=== PATIENT | female | born 1995 | race Caucasian/White ===

== ENCOUNTER 2018-09-12 14:22 | Outpatient (CLI) | payer OTHER, SELFPAY ==
[2018-09-13 11:16] LABS: HIV-1/2 Ag & Ab Screen Negative (NEGAT)
== END 2018-09-12 14:42 ==
PROVIDERS: PCP Nurse Practitioner Family; Visit Provider Obstetrics & Gynecology Gynecology
DX: Z11.4 Encounter for screening for human immunodeficiency virus [HIV] (principal)
CPT/HCPCS: 36415; 87389

== ENCOUNTER 2018-09-12 15:04 | Outpatient (REF) | payer OTHER, SELFPAY ==
[2018-09-15 14:40] LABS: Chlamydia Result Negative; GC Result Negative; Specimen Description CERVIX
== END 2018-09-12 15:24 ==
LOC: LBN 15:04
PROVIDERS: Obstetrics & Gynecology Gynecology; PCP Nurse Practitioner Family; Visit Provider Nurse Practitioner
DX: Z11.3 Encounter for screening for infections with a predominantly sexual mode of transmission (principal)
CPT/HCPCS: 87491; 87591

== ENCOUNTER 2018-11-10 10:58 | Outpatient (CLI) | payer MEDICAID, SELFPAY ==
[2018-11-10 11:40] LABS: Abs Immature Grans 0.03 k/cumm (0.0-0.09); Absolute Basophil Count 0.04 k/cumm (0.0-0.2); Absolute Lymphocyte Count 2.77 k/cumm (1.2-3.4); Absolute Monocyte Count 0.51 k/cumm (0.11-0.7); Basophils % 0.4; HCT 36.7 % (36.0-46.0); Immature Grans % 0.3; Lymphocytes % 26.5; Mean Corp. HGB Concentration 32.7 g/dL (32.0-36.0); Mean Corpuscular Hemoglobin 28.3 pg (27.0-33.0); Mean Corpuscular Volume 86.6 fL (80-95); Monocytes % 4.9; Neutrophils % 66.9; Platelet Count 302 x1000/uL (130-400); RBC 4.24 m/cumm (4.00-5.20); RBC Distribution Width 12.5 % (11.7-14.6); White Blood Cell Count 10.45 k/cumm (4.4-10.8)
[2018-11-10 11:41] LABS: Prothrombin Time 10.4 sec (9.3-11.0)
[2018-11-11 10:43] LABS: Syphilis Serology (RPR) Negative (Negative)
[2018-11-11 10:51] LABS: Rubella IgG Ab (UVM) Positive; Varicella IgG Antibody Positive
[2018-11-11 11:30] LABS: Hepatitis B Surface Ag Negative (NEGAT); Hepatitis C Ab w Rflx HCV PCR Negative (NEGAT)
[2018-11-11 12:25] LABS: HIV-1/2 Ag & Ab Screen Negative (NEGAT)
== END 2018-11-10 11:18 ==
PROVIDERS: PCP Nurse Practitioner; Visit Provider Advanced Practice Midwife
DX: Z34.91 Encounter for supervision of normal pregnancy, unspecified, first trimester (principal); Z11.4 Encounter for screening for human immunodeficiency virus [HIV]; Z11.59 Encounter for screening for other viral diseases; Z01.84 Encounter for antibody response examination; Z11.3 Encounter for screening for infections with a predominantly sexual mode of transmission
CPT/HCPCS: 36415; 80055; 80307; 86787; 86803; 86850; 86900; 86901; 87340; 87389; 87491; 87591; 84443; 85610; 86592; 86762; 87086

== ENCOUNTER 2018-11-20 13:09 | Outpatient (CLI) | payer MEDICAID, SELFPAY ==
[2018-11-20 13:42] LABS: Kit/Specimen SENT
[2018-11-25 17:02] LABS: Result Summary NEGATIVE; Specimen WB Whole Blood
== END 2018-11-20 13:29 ==
PROVIDERS: PCP Nurse Practitioner; Visit Provider Advanced Practice Midwife
DX: Z34.91 Encounter for supervision of normal pregnancy, unspecified, first trimester (principal); Z36.89 Encounter for other specified antenatal screening
CPT/HCPCS: 36415; 81220

== ENCOUNTER 2018-12-01 13:11 | Outpatient (CLI) | payer MEDICAID, SELFPAY ==
[2018-12-01 13:27] LABS: Kit/Specimen SENT
== END 2018-12-01 13:31 ==
PROVIDERS: PCP Nurse Practitioner; Visit Provider Obstetrics & Gynecology Gynecology
DX: Z34.01 Encounter for supervision of normal first pregnancy, first trimester (principal)
CPT/HCPCS: 36415

== ENCOUNTER 2018-12-12 02:04 | Outpatient (CLI) | payer MEDICAID, SELFPAY ==
[2018-12-12 15:01] LABS: Glucose,1 Hr (Glucola) 98 mg/dL (80-140)
== END 2018-12-12 02:24 ==
PROVIDERS: Advanced Practice Midwife; PCP Nurse Practitioner; Visit Provider Obstetrics & Gynecology Gynecology
DX: Z34.90 Encounter for supervision of normal pregnancy, unspecified, unspecified trimester (principal); Z68.37 Body mass index [BMI] 37.0-37.9, adult
CPT/HCPCS: 36415; 82950

== ENCOUNTER 2019-01-22 00:27 | Outpatient (CLI) | payer MEDICAID, SELFPAY ==
--- NOTE | 2019-01-22 14:56 | DI.US_ITS ---
SYMPTOM/DIAGNOSIS: SURVEY, US Z34.90 OBSTETRICAL ULTRASOUND: There is a single living intrauterine gestation. Estimated sonographic age is 20 weeks. The fetus is in the cephalic presentation. heart rate is 145 BPM. No abnormalities are identified. The amniotic fluid appears within normal limits visually. The placenta is anterior without evidence of previa. The placental cord insertion site is 1.1 cm from the edge of the placenta. IMPRESSION: Single living intrauterine gestation. Estimated sonographic age is 20 weeks. 2. Umbilical cord insertion site on to the placenta is 1.1 cm from the edge of the placenta. Predicted Gestational Age: Indication/History: SURVEY 19 Wks Range: 18 to 20 Prior US done on: Determined by: XX First US LMP XX History EDC by prior US: 06/18/19 For multiple gestations: Baby PLACENTA: Grade: 0-I Location: XX Anterior Posterior PRESENTATION: RT LT LOW LYING PREVIA Cephalic XX Trans (Head RT LT ) Varied Breech BIOMETRY: Anatomy Identified: BPD: 46 mm 20 wks 4 chamber Heart XX Heart Rate 145 BPM HC: 173 mm 19 +6 wks LVOT XX Post Fossa XX AC: 147 mm 20 wks RVOT XX Ventricles XX FL: 32 mm 19 +6 wks Stomach XX Nose XX Bladder XX Lips XX Cisterna Magna: 2.6 mm CI: 83 Kidneys XX Palate XX Cerebellum: 1.98 mm 3 vessel cord XX Spine XX EFW: 323 grms 93 % Cord Insertion XX NS= not seen Composite Age (US) 20 wks Many abnormalities cannot be diagnosed. A normal exam does not exclude congenital abnormality. EDC by US 06/11/19 Amniotic Fluid Index: Normal COMMENTS: RUQ: LUQ: RLQ: LLQ: Total: cm Biophysical Profile: Score 0/2 RADHA (>2cm) Respirations (>30 sec) Body flexion/extension Extremity flexion/extension TOTAL SCORE
== END 2019-01-22 00:47 ==
PROVIDERS: PCP Nurse Practitioner; Visit Provider Obstetrics & Gynecology
DX: Z34.92 Encounter for supervision of normal pregnancy, unspecified, second trimester (principal)
CPT/HCPCS: 76805

== ENCOUNTER 2019-03-25 02:15 | Outpatient (CLI) | payer MEDICAID, SELFPAY ==
[2019-03-25 10:29] LABS: Abs Immature Grans 0.06 k/cumm (0.0-0.09); Absolute Basophil Count 0.02 k/cumm (0.0-0.2); Absolute Eosinophil Count 0.09 k/cumm (0.0-0.7); Absolute Lymphocyte Count 1.49 k/cumm (1.2-3.4); Absolute Neutrophil Count 9.12 k/cumm (1.2-6.7); Basophils % 0.2; Eosinophils % 0.8; HCT 36.5 % (36.0-46.0); HGB 12.1 g/dL (12.0-15.5); Immature Grans % 0.5; Lymphocytes % 13.3; Mean Corp. HGB Concentration 33.2 g/dL (32.0-36.0); Mean Corpuscular Hemoglobin 30.3 pg (27.0-33.0); Mean Corpuscular Volume 91.5 fL (80-95); Mean Platelet Volume 10.8 fL (8.0-11.0); Monocytes % 3.8; Neutrophils % 81.4; Platelet Count 239 x1000/uL (130-400); RBC 3.99 m/cumm (4.00-5.20); RBC Distribution Width 12.9 % (11.7-14.6)
[2019-03-25 10:38] LABS: Glucose,1 Hr (Glucola) 137 mg/dL (80-140)
[2019-03-25 10:42] LABS: PTT Activated 23.6 sec (21.0-31.4); Prothrombin Time 10.5 sec (9.3-11.0)
[2019-03-25 10:49] LABS: Absolute Monocyte Count 0.43 k/cumm (0.11-0.7)
== END 2019-03-25 02:35 ==
PROVIDERS: PCP Nurse Practitioner; Visit Provider Nurse Practitioner Women's Health
DX: Z34.93 Encounter for supervision of normal pregnancy, unspecified, third trimester (principal); Z86.718 Personal history of other venous thrombosis and embolism
CPT/HCPCS: 36415; 82950; 85025; 85610; 85730

== ENCOUNTER 2019-04-10 02:11 | Outpatient (CLI) | payer MEDICAID, SELFPAY ==
--- NOTE | 2019-04-10 14:01 | DI.US_ITS ---
EXAM: US OB RADHA AND WEIGHT CLINICAL HISTORY: GROWTH US TECHNIQUE: Ultrasound performed using standard protocol. COMPARISON: US OB 2-3 trimester from 01/22/2019 US OB 2-3 trimester from 01/22/2019 FINDINGS: Fetus is in breech position. The placenta is anterior. The biometric measurements correspond to 31 weeks 1 day, which is consistent with dating from previous exams. The amniotic fluid index is normal at 16.6. The estimated weight is 1679 grams, corresponding to the 68th percentile. IMPRESSION: size is within normal limits for dates. Normal RADHA.
== END 2019-04-10 02:31 ==
PROVIDERS: PCP Nurse Practitioner; Visit Provider Obstetrics & Gynecology
DX: Z34.93 Encounter for supervision of normal pregnancy, unspecified, third trimester (principal)
CPT/HCPCS: 76816

== ENCOUNTER 2019-05-18 15:06 | Outpatient (REF) | payer MEDICAID, SELFPAY ==
[2019-05-18 16:12] LABS: *AMPHETAMINES SCREEN URINE Negative (Negative); *BARBITURATES SCREEN URINE Negative (Negative); *BENZODIAZEPINES SCREEN URINE Negative (Negative); Cannabinoids THC Negative (Negative); Cocaine Screen,Urine Negative (Negative); METHADONE URINE SCREEN Negative (Negative); OPIATES URINE SCREEN Negative (Negative)
[2019-05-18 16:21] LABS: Tricyclic Antidepressants Negative (Negative)
[2019-05-24 01:05] LABS: Buprenorphine Negative; Norbuprenorphine Negative
== END 2019-05-18 15:26 ==
LOC: LBN 15:06
PROVIDERS: PCP Nurse Practitioner; Visit Provider Obstetrics & Gynecology
DX: Z34.93 Encounter for supervision of normal pregnancy, unspecified, third trimester (principal); Z36.85 Encounter for antenatal screening for Streptococcus B
CPT/HCPCS: 80307; 87081

== ENCOUNTER 2019-05-29 11:12 | Outpatient (REF) | payer MEDICAID, SELFPAY | END 2019-05-29 11:32 | LOC: LBN 11:12 | PROVIDERS: PCP Nurse Practitioner; Visit Provider Obstetrics & Gynecology Gynecology | DX: Z34.93 Encounter for supervision of normal pregnancy, unspecified, third trimester (principal); Z36.85 Encounter for antenatal screening for Streptococcus B | CPT/HCPCS: 87081 ==

== ENCOUNTER 2019-06-07 09:12 | Observation (INO) | payer MEDICAID, SELFPAY ==
[2019-06-07 10:10] LABS: Abs Immature Grans 0.06 k/cumm (0.0-0.09); Absolute Basophil Count 0.02 k/cumm (0.0-0.2); Absolute Eosinophil Count 0.08 k/cumm (0.0-0.7); Absolute Lymphocyte Count 1.31 k/cumm (1.2-3.4); Absolute Monocyte Count 0.59 k/cumm (0.11-0.7); Absolute Neutrophil Count 5.81 k/cumm (1.2-6.7); Basophils % 0.3; HCT 38.4 % (36.0-46.0); Immature Grans % 0.8; Lymphocytes % 16.6; Mean Corp. HGB Concentration 33.9 g/dL (32.0-36.0); Mean Corpuscular Hemoglobin 29.7 pg (27.0-33.0); Mean Corpuscular Volume 87.9 fL (80-95); Mean Platelet Volume 11.1 fL (8.0-11.0); Monocytes % 7.5; Neutrophils % 73.8; Platelet Count 223 x1000/uL (130-400); RBC 4.37 m/cumm (4.00-5.20); RBC Distribution Width 12.8 % (11.7-14.6); White Blood Cell Count 7.87 k/cumm (4.4-10.8)
[2019-06-07 10:23] LABS: ALT 12 U/L (14-59); AST 14 U/L (15-37); Albumin 2.5 g/dL (3.4-5.0); Alkaline Phosphatase 110 U/L (46-116); Anion Gap 12.3 mmol/L (3-11); BUN 10 mg/dL (7-18); Bilirubin, Total 0.3 mg/dL (0.2-1.0); CO2 21.7 mmol/L (21.0-32.0); CREATININE 0.56 mg/dL (0.55-1.02); Calcium 9.1 mg/dL (8.5-10.1); Chloride 103 mmol/L (98-107); Glucose 90 mg/dL (74-106); Potassium 3.6 mmol/L (3.5-5.1); Sodium 137 mmol/L (136-145); Total Protein 6.8 g/dL (6.4-8.2)
[2019-06-07] MEDS: Ondansetron 4 MG/2 ML VIAL IVP (10:26)
[2019-06-07] MEDS: DEXTROSE 5%-LACTATED RINGERS 1,000 ML 150 ML IV ×2 (10:27→11:17)
[2019-06-07 11:33] LABS: Bilirubin Small (Negative); Blood Negative (Negative); Clarity Clear (Clear); Glucose 250 mg/dL (Negative); Ketones 40 mg/dL (Negative); Leukocyte Esterase Small (Negative); Nitrite Negative (Negative); Specific Gravity 1.025 (1.005-1.025); pH 5.5 (5-8)
[2019-06-07 11:44] LABS: Bacteria Negative HPF (Negative); C & S Indicated? No; Casts Negative LPF (Negative); Crystals Negative HPF (Negative); Epithelial Cells Moderate HPF (Negative); Mucus Trace (Negative); RBC Negative HPF (0-2); WBC 20-50 HPF (0-5)
== END 2019-06-07 14:30 | disposition home or self-care (01) ==
PROVIDERS: Admitting Provider Obstetrics & Gynecology; PCP Nurse Practitioner; Visit Provider Obstetrics & Gynecology
DX: O26.893 Other specified pregnancy related conditions, third trimester (principal); R10.9 Unspecified abdominal pain
CPT/HCPCS: 36415; 80053; 96360; 96361; 59025; 81003; 81015; 85025; G0378; J2405

== ENCOUNTER 2019-06-11 19:55 | Inpatient (IN) | payer MEDICAID, SELFPAY ==
[2019-06-11 20:49] LABS: HCT 37.5 % (36.0-46.0); HGB 12.7 g/dL (12.0-15.5); Mean Corp. HGB Concentration 33.9 g/dL (32.0-36.0); Mean Corpuscular Hemoglobin 29.6 pg (27.0-33.0); Mean Corpuscular Volume 87.4 fL (80-95); Mean Platelet Volume 11.8 fL (8.0-11.0); Platelet Count 209 x1000/uL (130-400); RBC 4.29 m/cumm (4.00-5.20); RBC Distribution Width 12.5 % (11.7-14.6)
--- NOTE | 2019-06-11 20:50 | HPE_ITS ---
Date of service: 06/11/19 Time of Service: 20:50 Assessment and Plan Assessment and plan (1) DVT of lower extremity (deep venous thrombosis): Status: Resolved (2) : Status: Acute (3) Encounter for induction of labor: Status: Acute Assessment and plan: Au well-placed and will remain in place overnight. Plan is to begin oxytocin initiation on the morning of 06/12/2019. History of Present Illness History of Present Illness Chief Complaint: Intrauterine at 39 weeks EGA, induction of labor. History of DVT s Narrative: Patient is a 23-year-old G1, P0 female admitted for a induction of labor at 39 weeks EGA. Patient is received prophylactic anticoagulation during this secondary to history of DVT a month after starting OCPs OCPs and after she sustained a ankle fracture and was immobile in a cast in 2016. She switched to unfractionated heparin at 36 weeks EGA and stopped heparin completely on 06/09/2019. She was counseled during this that it would be advised to have prophylactic anticoagulation. Patient stopped prophylactic baby aspirin at 36 weeks. course: First visit-[id number] 1214 visits first trimester blood pressure 110/68 third time is to blood pressure 129/80. Total weight gain 34 pounds. Size has been equal to dates. 30-week ultrasound showed estimated weight 68 percentile and normal cord insertion. Her partner Bello is supportive. No tobacco alcohol or drug use during this . Labs: GBS RV CX negative. Rh a positive antibody negative. Serology negative toxicology negative. Review of Systems Constitutional Constitutional: Reports system reviewed and no additional complaints, except as docu Gastrointestinal Gastrointestinal: Reports cramping (Recent evaluation for GI bug) and Reports loose stools (Loose stools have subsided.) Genitourinary Genitourinary: Reports system reviewed and no additional complaints, except as docu Musculoskeletal Musculoskeletal: Reports as per HPI (No lower extremity edema, unilateral swelling or redness) Psychiatric Psychiatric: Reports anxiety (Patient reports that she is feeling well has normal anxiety) and Reports other (Looking forward to having her baby) [facility] Medical History (Updated 06/11/19 @ 21:15 by Nicolle Akers MD) Ankle fracture (Resolved) 2011 BMI 37.0-37.9, adult (Acute) CAP (community acquired pneumonia) (Resolved) DVT of lower extremity (deep venous thrombosis) (Resolved) 2017. Began OCPs shortly before fractured ankle with prolonged immobility. 2018 thrombophilia eval negative. 2019. Rx with prophylactic anticoagulation during . Encounter for induction of labor (Acute) Excessive and frequent menstruation with irregular cycle (Inactive) Onset early adolescence. Rx with OCPs and most recently Depo-Provera last injection 07/2017. Menses now monthly. DANNA (generalized anxiety disorder) (Chronic) Rx with sertraline and ? Ativan. Not effective. Uses MJ to treat anxiety. Is open to counseling. Herpes zoster without complication (Acute) Intractable cyclical vomiting with nausea (Resolved) Morbid obesity (Resolved) Sciatica (Acute) Family History (Updated 09/01/18 @ 12:34 by Marlen Noel) Father Heart disease Mother Depression Maternal Grandfather Heart disease Maternal Grandmother Stroke Social History (Updated 09/12/18 @ 15:39 by Nicolle Akers MD) Smoking/Tobacco Use Status: Former Tobacco Use (remote hx, quit a couple years ago) Alcohol Intake: former (a couple beers per week, last one right before she found out about ) Details: Patient denies having an issue with alcohol Drug use: Never Substance use type: former substance user (Last MJ use right early September) Details: Marijuana use several times a week since 15yo for control of anxiety Household members: other Housing: apartment Number of Children: 0 Education Level: 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: [employer] House Pets and animals: Yes Pets and animals: cat(s) Sexually active: Yes Other: Past relationships have been with male partners What type of physical activity do you participate in: none Female Reproductive History Menstrual control method: none History History 1 Para 0 Hx # Term Pregnancies 0 Multiple births 0 Hx # Pregnancies 0 Ectopic pregnancies 0 AB induced 0 Hx Number of Living Children 0 AB spontaneous 0 Meds Home Medications and Allergies Home Medications Medication Instructions Recorded Confirmed Type prenat.vits,micheal,luy-vicv-vgggk 1 tab PO DAILY 10/15/18 06/05/19 History ondansetron 4 mg disintegrating 4 mg PO Q6H PRN #20 tab 06/07/19 Rx tablet Allergies Allergy/AdvReac Type Severity Reaction Status Date / Time No Known Allergies Allergy Verified 06/05/19 14:56 Exam Narrative Exam Narrative: Patient was admitted to the center NST was performed and was reactive. Vaginal exam: Closed soft 25% effaced -2 station vertex. With the patient's permission a Au bulb was inserted through the cervix into the uterus lower uterine segment and the bulb inflated with 30 cc of sterile normal saline. Patient tolerated the procedure well Const General: no acute distress Nutritional Appearance: obese Orientation: alert, awake and oriented x3 Neck Neck: normal visual inspection Thyroid: thyroid normal Resp Effort & Inspection: normal respiratory effort Auscultation: clear to auscultation bilaterally Cardio Rate: regular rate Rhythm: regular rhythm Manual OB Exam: dilated fingertip, effaced 25%, station -2 and other (Cervix soft, vertex presentation) Skin General skin exam: no rashes or lesions noted (Multiple tattoos) Neuro DTR's: Rt Patellar: 1+ (1 beat clonus) and Lt Patellar: 1+ (1 beat clonus) Extrem General: normal to inspection, full ROM, normal capillary refill, no pedal edema and no calf tenderness Psych Appearance: grossly normal Mental Status: mental status grossly normal Results Labs Result diagrams: 06/11/19 20:38
[2019-06-12] MEDS: Normal Saline Flush 10 ML SYR IVP (08:40)
[2019-06-12] MEDS: Lactated Ringers 1,000 ML 125 ML IV ×2 (08:40→16:06)
[2019-06-13] MEDS: Lactated Ringers 1,000 ML 125 ML IV
[2019-06-13] MEDS: FentaNYL/ROPIvacaine 2 mcg/ml and 0.1% 200 ML CADD Cassette EP (03:30)
[2019-06-13] MEDS: Calcium Carbonate *TUMS* 500 MG CHEW PO (07:20)
[2019-06-13] MEDS: Ibuprofen 600 MG TAB PO (15:00)
[2019-06-13] MEDS: Hamamelis Leaf/Glycerin 100 EACH BOX PR (19:46)
[2019-06-14] MEDS: Ibuprofen 600 MG TAB PO ×3 (01:00→19:40)
[2019-06-14] MEDS: Acetaminophen 325 MG TAB 650 MG PO ×2 (10:13→19:40)
[2019-06-14] MEDS: Docusate Sodium 100 MG CAP PO (12:48)
[2019-06-14] MEDS: Enoxaparin 40 MG/0.4 ML SYR SC (17:08)
[2019-06-15] MEDS: Acetaminophen 325 MG TAB 650 MG PO ×2 (04:20→12:07)
[2019-06-15] MEDS: Ibuprofen 600 MG TAB PO ×2 (04:20→12:08)
--- NOTE | 2019-06-15 13:21 | W.PM.DS.N ---
Date of service: 06/15/19 Time of Service: 13:21 DS: Diagnosis Discharge Diagnosis (1) DVT of lower extremity (deep venous thrombosis): Status: Resolved (2) : Status: Acute (3) Encounter for induction of labor: Status: Acute Discharge Plan Disposition Patient Disposition: HOME Condition: Good Discharge Details Reason For Visit: TERM INDUCTION OF LABOR Admit Date/Time: 06/11/19 19:55 Admit Provider: Nicolle Akers Attending Provider: Nicolle Akers Primary Care Provider: Danyell Choi [facility] Course Hospital Course: Ms. Castro was treated with prophylactic anticoagulation during her secondary to history of a DVT after a fractured ankle while on OCPs. She is stopped all heparin on 06/09/2019. Patient was admitted on 06/11/2019 underwent a Au bulb cervical ripening followed by oxytocin augmentation and a spontaneous vaginal delivery on 06/13/2019. She was discharged home on day 2 successfully breast-feeding and with minimal uterine cramping and minimal uterine bleeding. Plan at this time is to have her follow-up in approximately 2 weeks for assessment of mood and breast-feeding. She was given discharge instructions and will use ibuprofen for analgesia. Home Meds and New Rx's Prescriptions: No Action prenat.vits,micheal,hpw-vkap-lgksf tablet 1 tab PO DAILY RF: 0 ondansetron 4 mg tablet,disintegrating 4 mg PO Q6H PRN (Reason: nausea and vomiting) Qty: 20 RF: 0 enoxaparin [Lovenox] 40 mg/0.4 mL syringe 40 mg SC DAILY Qty: 4 RF: 6 Discharge Instructions Stand Alone Forms: BC Instructions, BC Post Vaginal Deliver Activity:: Activity as Tolerated Equipment/Supplies:: No Equipment Needed Diet:: As Tolerated Discharge Orders Discharge Orders: Discharge Order (Routine); Ordered 06/15/19 Ordered By: Nicolle Akers DS: Summary Status at Discharge Functional status at discharge: independent ambulation Overall status at discharge: patient is back to baseline Mental Status: mental status grossly normal Speech and Movement: speech and movement normal Mood: congruent mood Affect: normal affect Exam Const General: no acute distress Nutritional Appearance: obese Orientation: alert, awake and oriented x3 Neck Neck: normal visual inspection Resp Effort & Inspection: normal respiratory effort Cardio Rate: regular rate General: deferred Skin General skin exam: no rashes or lesions noted (Multiple tattoos) Extrem General: normal to inspection, full ROM, normal capillary refill and no pedal edema Psych Appearance: grossly normal Mental Status: mental status grossly normal Speech and Movement: speech and movement normal Mood: congruent mood Affect: normal affect DS: Data Vitals/I&O Vitals and I&O: Vital Signs Pain Level 3 06/15/19 12:08 Intake & Output 06/14/19 06/15/19 06/15/19 23:59 11:59 23:59 Intake Total 1000 / 1000 Balance 1000 / 1000 Intake: IV 1000 / 1000 [facility] Medical History (Updated 06/11/19 @ 21:15 by Nicolle Akers MD) Ankle fracture (Resolved) 2011 BMI 37.0-37.9, adult (Acute) CAP (community acquired pneumonia) (Resolved) DVT of lower extremity (deep venous thrombosis) (Resolved) 2016. Began OCPs shortly before fractured ankle with prolonged immobility. 2018 thrombophilia eval negative. 2019. Rx with prophylactic anticoagulation during . Encounter for induction of labor (Acute) Excessive and frequent menstruation with irregular cycle (Inactive) Onset early adolescence. Rx with OCPs and most recently Depo-Provera last injection 07/2017. Menses now monthly. DANNA (generalized anxiety disorder) (Chronic) Rx with sertraline and ? Ativan. Not effective. Uses MJ to treat anxiety. Is open to counseling. Herpes zoster without complication (Acute) Intractable cyclical vomiting with nausea (Resolved) Morbid obesity (Resolved) Sciatica (Acute) Family History (Updated 09/01/18 @ 12:34 by Marlen Noel) Father Heart disease Mother Depression Maternal Grandfather Heart disease Maternal Grandmother Stroke Social History (Updated 09/12/18 @ 15:39 by Nicolle Akers MD) Smoking/Tobacco Use Status: Former Tobacco Use (remote hx, quit a couple years ago) Alcohol Intake: former (a couple beers per week, last one right before she found out about ) Details: Patient denies having an issue with alcohol Drug use: Never Substance use type: former substance user (Last MJ use right early September) Details: Marijuana use several times a week since 15yo for control of anxiety Household members: other Housing: apartment Number of Children: 0 Education Level: 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 Date GA/Weeks # Outcome Route Wgt Sex Labor Lgth Anesthesia Location Prov Complic 06/13/19 39 Successful vaginal 8 lb 2 oz Male AOC Delivery Date: 06/13/19 On 06/15/19 @ 13:25 Nicolle Akers Induction of labor at term secondary to anticoagulation during this . . Intact perineum. Dante Dominguez.
[2019-06-15] MEDS: Enoxaparin 40 MG/0.4 ML SYR SC (16:03)
== END 2019-06-15 17:55 | disposition home or self-care (01) | DRG 807 ==
PROVIDERS: Admitting Provider Obstetrics & Gynecology Gynecology; PCP Nurse Practitioner; Visit Provider Obstetrics & Gynecology Gynecology
DX: O76 Abnormality in fetal heart rate and rhythm complicating labor and delivery (principal); Z37.0 Single live birth; O75.89 Other specified complications of labor and delivery; O99.344 Other mental disorders complicating childbirth; Z86.718 Personal history of other venous thrombosis and embolism; Z79.01 Long term (current) use of anticoagulants; Z3A.39 39 weeks gestation of pregnancy; F41.1 Generalized anxiety disorder
CPT/HCPCS: 85027; 86850; 86900; 86901; J1650; NC; 59200; J3490

== ENCOUNTER 2019-06-18 18:36 | Emergency (ER) | payer MEDICAID, SELFPAY ==
[2019-06-18 18:40] VITALS: BP 119/59; PULSE 110; RESP 14; TEMP 37.1; O2SAT 96
--- NOTE | 2019-06-18 18:56 | ED.GENADUL_ITS ---
Discharge Plan Disposition Patient Disposition: HOME Condition: Improving Discharge Details Chief Complaint: Urinary Clinical Impression: Urinary tract infection Primary Care Provider: Danyell Choi ED Provider: Hakeem Beauchamp Home Meds and New Rx's Prescriptions: New cephalexin 500 mg tablet 500 mg PO TID 7 Days Qty: 21 RF: 0 Continued prenat.vits,micheal,cbz-dnuw-zrvnn tablet 1 tab PO DAILY RF: 0 ondansetron 4 mg tablet,disintegrating 4 mg PO Q6H PRN (Reason: nausea and vomiting) Qty: 20 RF: 0 enoxaparin [Lovenox] 40 mg/0.4 mL syringe 40 mg SC DAILY Qty: 4 RF: 6 Discharge Instructions Instructions: Urinary Tract Infection in Women (ED) Additional Instructions: Home to rest this evening. Small, frequent sips of fluids to maintain hydration. Take antibiotics as prescribed, next dose tomorrow morning. As we discussed, watch [place] for the development of thrush. Return for any acute concerns. Your potassium was slightly low and was supplemented in the emergency department. You may liberalize potassium containing foods in the diet such as strawberries, bananas, tree nuts like almonds or cashews. Medical Decision Making 23-year-old female presents from home. She is 5 days status post uncomplicated vaginal delivery at approximately 39 weeks. She has had 4 to 5 days of urinary urgency, frequency, burning, mild crampy low back pain. She arrives to the ER afebrile with a discrete tachycardia. White blood cell count is 10, hematocrit 34, platelets 253, chemistries reassuring sodium 141, potassium 3.1, chloride 105, bicarb 21 BUN 8, creatinine 0.8. Patient received potassium supplementation in the ED. Her urinalysis reveals positive nitrites, positive leuk esterase, greater than 50 white blood cells per high-powered field and many bacteria. Consistent with acute urinary tract infection and possibly an early pyelonephritis. Patient was given ceftriaxone in the ER and I will place her on a course of Keflex. HPI General Mode of arrival: ambulatory . Date/Time Provider Initiated Documentation: 06/18/19 18:38 . Limitations to Documentation: no limitations . Information obtained by: patient . History of Present Illness 23 year old F presents to the emergency department with the chief complaint of UTI symptoms. 5 days status post uncomplicated vaginal delivery, described as moderate, Quality is described as dull, and is localized to the back. Patient reports no radiation. Patient started experiencing this day(s) and it has been constant. No relieving factors improve symptom(s), No exacerbating factors reported . Patient notes fever/chills, malaise and other (No vaginal discharge. Minimal vaginal bleeding.); denies shortness of breath and syncope. Patient did receive the following treatments prior to arrival, none Related Data Home Medications Medication Instructions Recorded Confirmed prenat.vits,micheal,jzj-qhoi-eglua 1 tab PO DAILY 10/15/18 06/12/19 ondansetron 4 mg disintegrating 4 mg PO Q6H PRN #20 tab 06/07/19 06/12/19 tablet enoxaparin 40 mg/0.4 mL 40 mg SC DAILY #4 ml 06/15/19 subcutaneous syringe cephalexin 500 mg PO TID 7 Days #21 tab 06/18/19 Previous Rx's Medication Instructions Recorded ondansetron 4 mg disintegrating 4 mg PO Q6H PRN #20 tab 06/07/19 tablet enoxaparin 40 mg/0.4 mL 40 mg SC DAILY #4 ml 06/15/19 subcutaneous syringe cephalexin 500 mg PO TID 7 Days #21 tab 06/18/19 Allergies Allergy/AdvReac Type Severity Reaction Status Date / Time No Known Allergies Allergy Verified 06/05/19 14:56 General Stated Complaint: Urinary CARIDAD: 3 Review of Systems Narrative: She has been breast-feeding. Minimal vaginal bleeding, no other vaginal discharge. States she did not have an episiotomy repair. 6 systems reviewed and otherwise negative [facility] Medical History Ankle fracture (Resolved) 2011 BMI 37.0-37.9, adult (Acute) CAP (community acquired pneumonia) (Resolved) DVT of lower extremity (deep venous thrombosis) (Resolved) 2016. Began OCPs shortly before fractured ankle with prolonged immobility. 2018 thrombophilia eval negative. 2019. Rx with prophylactic anticoagulation during . Encounter for induction of labor (Acute) Excessive and frequent menstruation with irregular cycle (Inactive) Onset early adolescence. Rx with OCPs and most recently Depo-Provera last injection 07/2017. Menses now monthly. DANNA (generalized anxiety disorder) (Chronic) Rx with sertraline and ? Ativan. Not effective. Uses MJ to treat anxiety. Is open to counseling. Herpes zoster without complication (Acute) Intractable cyclical vomiting with nausea (Resolved) Morbid obesity (Resolved) Sciatica (Acute) Family History Father Heart disease Mother Depression Maternal Grandfather Heart disease Maternal Grandmother Stroke Social History Smoking/Tobacco Use Status: Never Alcohol Intake: former Details: Patient denies having an issue with alcohol Drug use: Never Substance use type: former substance user Details: Marijuana use several times a week since 15yo for control of anxiety Household members: other Housing: apartment Number of Children: 0 Education Level: other 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 Date GA/Weeks # Outcome Route Wgt Sex Labor Lgth Anesthes ia Location Prov Complic 06/13/19 39 Successful vaginal 3.685 kg Male A OC Delivery Date: 06/13/19 On 06/15/19 @ 13:25 Nicolle Akers Induction of labor at term secondary to anticoagulation during this . . Intact perineum. Dante Dominguez. Exam Narrative Exam Narrative: GEN: awake, alert, oriented 3. Pleasant, well groomed, interactive. HEAD: Normocephalic, atraumatic ENT: Mucous membranes moist, oropharynx unremarkable, External ear exam unremarkable EYES: PERRL, EOMI NECK: Full ROM, no REMI, no menigismus CHEST/RESP: Nontender, clear to auscultation bilateral, no wheeze/rhonchi/rales CARDIOVASCULAR: RRR, no murmur, rub benny. 2+ Rad pulse bilateral ABDOMEN: Soft, nontender, no mass. +Bowel sounds EXT: Full ROM, no edema, no rash Neuro: Grossly normal neurologic exam, conversant, interactive. Psych: Speech fluent, thoughts congruent, affect normal Course Vital Signs Vital signs: Respiratory Effort 06/18/19 18:47
[2019-06-18 19:03] LABS: Bilirubin Negative (Negative); Blood Large (Negative); Clarity Sl Cloudy (Clear); Glucose Negative (Negative); Ketones Negative (Negative); Leukocyte Esterase Trace (Negative); Nitrite Positive (Negative)
[2019-06-18] MEDS: Acetaminophen 325 MG TAB 650 MG PO (19:07)
[2019-06-18] MEDS: Normal Saline Flush 10 ML SYR IVP (19:13)
[2019-06-18] MEDS: Normal Saline 1,000 ML 1000 ML IV (19:15)
[2019-06-18 19:17] LABS: Bacteria Many HPF (Negative); C & S Indicated? Yes; Casts Negative LPF (Negative); Crystals Negative HPF (Negative); Epithelial Cells Negative HPF (Negative); Mucus Negative (Negative); Other Cells Negative (Negative); RBC Negative HPF (0-2); WBC >50 HPF (0-5)
[2019-06-18 19:25] LABS: Abs Immature Grans 0.03 k/cumm (0.0-0.09); Absolute Basophil Count 0.01 k/cumm (0.0-0.2); Absolute Eosinophil Count 0.05 k/cumm (0.0-0.7); Absolute Lymphocyte Count 0.49 k/cumm (1.2-3.4); Absolute Neutrophil Count 9.43 k/cumm (1.2-6.7); Basophils % 0.1; Eosinophils % 0.5; HCT 34.2 % (36.0-46.0); HGB 11.2 g/dL (12.0-15.5); Immature Grans % 0.3; Lymphocytes % 4.6; Mean Corp. HGB Concentration 32.7 g/dL (32.0-36.0); Mean Corpuscular Hemoglobin 29.7 pg (27.0-33.0); Mean Corpuscular Volume 90.7 fL (80-95); Mean Platelet Volume 10.3 fL (8.0-11.0); Monocytes % 6.5; Platelet Count 253 x1000/uL (130-400); RBC 3.77 m/cumm (4.00-5.20); RBC Distribution Width 12.3 % (11.7-14.6); White Blood Cell Count 10.71 k/cumm (4.4-10.8)
[2019-06-18] MEDS: cefTRIAXone 1 GM/50 ML BAG IVPB (19:25)
[2019-06-18 19:34] LABS: Anion Gap 14.2 mmol/L (3-11); BUN 8 mg/dL (7-18); CO2 21.8 mmol/L (21.0-32.0); Calcium 7.9 mg/dL (8.5-10.1); Chloride 105 mmol/L (98-107); Glucose 109 mg/dL (74-106); Potassium 3.1 mmol/L (3.5-5.1); Sodium 141 mmol/L (136-145)
[2019-06-18] MEDS: Potassium Chloride Liquid 20 MEQ PKT PO (19:56)
[2019-06-18] MEDS: Cephalexin 500 MG CAP, 4 CAPS/BTL PO (19:57)
[2019-06-18 20:18] VITALS: BP 124/65; PULSE 99; RESP 14; TEMP 36.6; O2SAT 97
[2019-06-18 20:23] VITALS: BP 124/65; PULSE 99; TEMP 36.6; O2SAT 97
== END 2019-06-18 20:25 | disposition home or self-care (01) ==
PROVIDERS: Emergency Provider Emergency Medicine; PCP Nurse Practitioner
DX: N39.0 Urinary tract infection, site not specified (principal); B96.20 Unspecified Escherichia coli [E. coli] as the cause of diseases classified elsewhere; E87.6 Hypokalemia
CPT/HCPCS: 36415; 80048; 87077; 96361; 96365; 99284; 81003; 81015; 85025; 87086; 87186; J0696; J3490

== ENCOUNTER 2019-07-10 07:01 | Outpatient (CLI) | payer MEDICAID, SELFPAY ==
--- NOTE | 2019-07-10 10:17 | DI.US_ITS ---
EXAM: US LOWER EXTREMITY VENOUS LT CLINICAL HISTORY: LLE pain. History of DVT M79.662 PAIN LT LEG, Z86.718 HX DVT TECHNIQUE: Ultrasound performed using standard protocol. COMPARISON: No exams were available for comparison FINDINGS: The common femoral, superficial femoral and popliteal veins were freely compressible. No thrombus i s visualized. The saphenous vein appears free of thrombus. The posterior tibial veins are noncompre ssible and contain thrombus. The peroneal and anterior tibial veins were not visualized. No superfi cial venous varicosities are seen. No Park's cyst is identified. IMPRESSION: Deep venous thrombosis of the posterior tibial veins.
== END 2019-07-10 07:21 ==
PROVIDERS: PCP Nurse Practitioner; Visit Provider Obstetrics & Gynecology
DX: M79.662 Pain in left lower leg (principal); Z86.718 Personal history of other venous thrombosis and embolism; I82.442 Acute embolism and thrombosis of left tibial vein
CPT/HCPCS: 93971

== ENCOUNTER 2019-07-10 22:16 | Emergency (ER) | payer MEDICAID, SELFPAY ==
[2019-07-10 22:19] VITALS: BP 98/48; PULSE 76; RESP 22; TEMP 36.3; O2SAT 99
[2019-07-10 22:35] VITALS: RESP 22
[2019-07-10] MEDS: Normal Saline 1,000 ML 1000 ML IV (22:35)
[2019-07-10] MEDS: MORPHine 10 MG/ML VIAL (22:35)
[2019-07-10 22:50] LABS: HCT 42.1 % (36.0-46.0); HGB 13.6 g/dL (12.0-15.5); Mean Corp. HGB Concentration 32.3 g/dL (32.0-36.0); Mean Corpuscular Hemoglobin 28.6 pg (27.0-33.0); Mean Corpuscular Volume 88.4 fL (80-95); Mean Platelet Volume 10.5 fL (8.0-11.0); Platelet Count 330 x1000/uL (130-400); RBC 4.76 m/cumm (4.00-5.20); White Blood Cell Count 9.64 k/cumm (4.4-10.8)
[2019-07-10 23:03] LABS: INR 1.2 (0.9-1.1); PTT Activated 25.7 sec (21.0-31.4); Prothrombin Time 11.9 sec (9.3-11.0)
[2019-07-10 23:04] LABS: ALT 23 U/L (14-59); AST 13 U/L (15-37); Albumin 3.5 g/dL (3.4-5.0); Alkaline Phosphatase 91 U/L (46-116); BUN 12 mg/dL (7-18); Bilirubin, Total 0.3 mg/dL (0.2-1.0); CREATININE 0.86 mg/dL (0.55-1.02); Calcium 8.7 mg/dL (8.5-10.1); Chloride 106 mmol/L (98-107); Glucose 101 mg/dL (74-106); Potassium 3.6 mmol/L (3.5-5.1); Sodium 143 mmol/L (136-145); Total Protein 7.3 g/dL (6.4-8.2)
--- NOTE | 2019-07-10 23:04 | ED.GENADUL_ITS ---
Discharge Plan Disposition Patient Disposition: HOME Condition: Good Discharge Details Chief Complaint: Chest Pain Clinical Impression: Pulmonary embolism Primary Care Provider: Danyell Choi ED Provider: Zack Perales Home Meds and New Rx's Prescriptions: No Action prenat.vits,micheal,och-apmi-blzek tablet 1 tab PO DAILY RF: 0 Eliquis DVT-PE Treat 30D Start 5 mg (74 tabs) tablets,dose pack See Rx Instructions PO PER PKG DIR Qty: 74 RF: 0 ondansetron 4 mg tablet,disintegrating 4 mg PO Q6H PRN (Reason: nausea and vomiting) Qty: 20 RF: 0 Discharge Instructions Instructions: Pulmonary Embolism (GEN) Additional Instructions: You do have evidence of 3 small pulmonary embolisms. Your apixaban is appropriately dosed. Continue taking this as directed. Continue drinking plenty of fluids. Follow-up very closely with your primary care provider. If you notice any worsening of your symptoms, or any new symptoms such as vomiting, diarrhea, fever, chills, shortness of breath, chest pain, numbness, weakness, lightheadedness, or fainting , please return immediately to the emergency depa rtment for reevaluation. Please follow up with your primary care provider as soon as possible for reassessment and reevaluation. As always, it was a pleasure participating in your medical care today. Referrals: Danyell Choi, MEDICAL RECORD TECHNICIAN [Primary Care Provider] - Medical Decision Making This is a pleasant 23-year-old female who is recently , who was diagnosed with a left lower extremity DVT this morning, who presents for chest pain shortness of breath. She has taken her first dose of Eliquis today. EOMI, PERRL, Peripheral vision intact. No nystagmus. No external signs of preseptal cellulitis, no redness around the eye, no proptosis. No hyphema, no signs of trauma around the eye, no periorbital emphysema. Demonstrates slightly low blood pressure at 98/48, minimal tachycardia. No hypoxemia. Limited bedside portable cardiac ultrasound demonstrates no evidence of pericardial effusion, ventricles appear relatively unremarkable with no signs of significant right heart strain. EKG shows minimal nonspecific less than a millimeter ST depression in aVL, inverted T wave in V1. Q waves present in lead III. However review of prior EKG from 11/24/2018 demonstrates no acute changes. We will get a CTA, rehydrate, evaluate for signs of heart strain and reassess. 11:35 PM Patient's laboratory work-up is returned notably unremarkable, proBNP and troponin are both normal, white count and hemoglobin are normal. Electrolytes are unremarkable. Blood pressure after just 250 cc of fluid is notably improved to 114/71 systolic. Patient states that she feels much better. CT scan demonstrates evidence of small bilateral pulmonary emboli, on the segmental and subsegmental levels. No evidence of heart strain, or massive saddle emboli. Patient looks notably hemodynamically stable, she shows no signs of acute hemodynamic failure. No signs of significant heart strain on bedside limited cardiac echo. At this time I feel that the patient is stable for discharge especially in conjunction with relatively unchanged EKG, normal proBNP, normal troponin. She is on appropriate treatment already with her DVT with her apix aban. Recommend continuing the 10 mg twice daily for the next 6 days, followed by 5 mg twice daily after that. Discussed the importance of close follow-up, as well as concerning red flags of lightheadedness or syncope for which to immediately return. I have extensively reviewed the treatment plan and discharge instructions with the patient and their family. I have addressed all patient concerns at this time. The patient and family was made aware of what symptoms to monitor for that would warrant a return to the emergency department. Discussed the plan with the patient and family, they demonstrate verbal understanding and agreement with our assessment and plan at this time. EKG 22: 24 Sinus rhythm, rate 82, intervals normal, no evidence of STEMI. EKG shows minimal nonspecific less than a millimeter ST depression in aVL, inverted T wave in V1. Q waves present in lead III. However review of prior EKG from 11/24/2018 demonstrates no acute changes. FINDINGS: Pulmonary arteries: There is a filling defect in a right lower lobe segmental and subsegmental branch (series 6, image 316) in keeping with pulmonary embolus. Several tiny subsegmental defects are seen in both lungs, for example series 6 image 350. No central or lobar filling defect. Aorta: Unremarkable. No aortic aneurysm. No aortic dissection. Lungs: The lungs show no consolidation or evidence of infarction. Mild lower lobe atelectasis. Pleural space: Unremarkable. No pneumothorax. No pleural effusion. Heart: Normal heart size without pericardial effusion. No evidence of right heart strain. Lymph nodes: Unremarkable. No enlarged lymph nodes. Bones/joints: Unremarkable. No acute fracture. Soft tissues: Unremarkable. IMPRESSION: Small bilateral pulmonary emboli at the segmental and subsegmental levels. No evidence of right heart strain. Thank you for allowing us to participate in the care of your patient. Dictated and Authenticated by: Yvette Desai MD 07/10/2019 11:30 PM Eastern Time ([place] & [place]) HPI General Date/Time Provider Initiated Documentation: 07/10/19 22:43 . HPI Narrative: This is a 23-year-old female with a past medical history of a DVT when she was 16 years old after fracture, who is just recently , who was also just diagnosed with a left lower extremity DVT this morning. She was started on Eliquis, the first dose she took tonight. At noon this morning she noticed mild chest pain which worsened again at 330 and then at 6 PM. Currently her pain is notable, it is pleuritic and she describes it as significant chest pressure and pain. Worse with breathing, she feels associated shortness of breath, but denies any cough or hemoptysis. She denies any lightheadedness or syncope. She denies any tearing or ripping pain. She states that the pain in her calf is slightly improved. She has no other complaints at this time. She denies any other modifying factors. Related Data Home Medications Medication Instructions Recorded Confirmed prenat.vits,micheal,mlm-vlyw-dsjlt 1 tab PO DAILY 10/15/18 07/10/19 ondansetron 4 mg disintegrating 4 mg PO Q6H PRN #20 tab 06/07/19 07/10/19 tablet apixaban 5 mg (74 tabs) tablets in See Rx Instructions PO PER PKG DIR 07/10/19 07/10/19 a dose pack #74 dose pk Previous Rx's Medication Instructions Recorded ondansetron 4 mg disintegrating 4 mg PO Q6H PRN #20 tab 06/07/19 tablet apixaban 5 mg (74 tabs) tablets in See Rx Instructions PO PER PKG DIR 07/10/19 a dose pack #74 dose pk Allergies Allergy/AdvReac Type Severity Reaction Status Date / Time No Known Allergies Allergy Verified 07/10/19 22:26 General Stated Complaint: Chest Pain CARIDAD: 2 Review of Systems All systems reviewed & are unremarkable except as noted in HPI and below PFSH Social History Smoking/Tobacco Use Status: Never Alcohol Intake: former Details: Patient denies having an issue with alcohol Drug use: Never Substance use type: former substance user Details: Marijuana use several times a week since 15yo for control of anxiety Household members: other Housing: apartment Number of Children: 0 Education Level: other 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 Date GA/Weeks # Outcome Route Wgt Sex Labor Lgth Anesthes ia Location Prov Complic 06/13/19 39 Successful vaginal 3.685 kg Male A OC Delivery Date: 06/13/19 On 06/15/19 @ 13:25 Nicolle Akers Induction of labor at term secondary to anticoagulation during this . . Intact perineum. Dante Dominguez. Exam Narrative Exam Narrative: 1.Const: Well-nourished, Well-developed, appearing stated age 2.Eyes: PERRL, no conjunctival injection, and symmetrical lids. 3.ENT: Atraumatic external nose and ears. Moist MM. Neck: Symmetric, trachea midline, No thyromegaly. 4.CVS: +S1/S2, No murmurs or gallops. Peripheral pulses 2+ and equal in all extremities. Brisk capillary refill in all extremities. 5.RESP: Unlabored respiratory effort. Clear to auscultation bilaterally. No wheezes rales or rhonchi 6.GI: Soft, Nontender/Nondistended, No hepatosplenomegaly. No guarding or rebound. 7.MSK: Normocephalic/Atraumatic, Extremities w/o deformity or ttp No cyanosis or clubbing, Normal movement of all extremities. Minimal left lower extremity calf tenderness. 8.Skin: Warm, Dry. No rashes or lesions. 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 Sensation grossly intact, no focal neurologic deficits. 10.Psych: (AAO) x3. Appropriate mood and affect Course Vital Signs Vital signs: Vital Signs Temperature 36.3 C L 07/10/19 22:19 Pulse 76 07/10/19 22:19 Respiratory Rate 22 07/10/19 22:19 Blood Pressure 98/48 L 07/10/19 22:19 Pulse Oximetry 99 07/10/19 22:19 Temperature 36.3 C L 07/10/19 22:19 Temperature Source Skin 07/10/19 22:19 Pulse 76 07/10/19 22:19 Respiratory Rate 22 07/10/19 22:19 Respiratory Effort Pursed Lip 07/10/19 22:30 Blood Pressure 98/48 L 07/10/19 22:19 Blood Pressure Position Supine 07/10/19 22:19 Pulse Oximetry 99 07/10/19 22:19 Oxygen Delivery Method Room Air 07/10/19 22:19 Oxygen Flow Rate 0 07/10/19 22:19 Pain Level 8 07/10/19 22:35 Lab/Test Results Lab/Test Results: Laboratory Tests Range/Units 07/10/19 22:35 WBC (4.4-10.8) k/cumm 9.64 RBC (4.00-5.20) m/cumm 4.76 Hgb (12.0-15.5) g/dL 13.6 Hct (36.0-46.0) % 42.1 MCV (80-95) fL 88.4 MCH (27.0-33.0) pg 28.6 MCHC (32.0-36.0) g/dL 32.3 RDW (11.7-14.6) % 12.0 Plt Count (130-400) x1000/uL 330 MPV (8.0-11.0) fL 10.5
[2019-07-10 23:07] LABS: Troponin I < 0.05 ng/Ml (<0.06)
[2019-07-10 23:10] LABS: NT-proBNP 39 pg/mL (<300)
[2019-07-10] MEDS: Omnipaque 350 MG/ML 100 ML BTL IJ (23:13)
--- NOTE | 2019-07-10 23:16 | DI.CT_ITS ---
EXAM: CT CHEST PE CTA CLINICAL HISTORY: DVT, suspect PE, SOB, CP TECHNIQUE: COMPARISON: No exams were available for comparison FINDINGS: CT angiography of the chest was performed with intravenous infusion of 100 cc of Omnipaque 350. Imag es obtained through the upper abdomen show unremarkable appearance of visualized portions of liver, s pleen, pancreas, adrenals, and kidneys. The lungs are predominantly clear with minimal areas of dependent atelectasis. Tracheobronchial tree appears intact. No pneumothorax or pleural effusion. No evidence of aortic dissection or aneurysm. There are multiple segmental and subsegmental pulmonary emboli predominantly in the lower lobe vessel s bilaterally. No central pulmonary embolus identified. No evidence of right heart strain. No evid ence of pulmonary infarction. No evidence of mediastinal or hilar adenopathy. IMPRESSION: Multiple bilateral pulmonary emboli in segmental and subsegmental vessels as described above. No kavya dence of right heart strain.
[2019-07-10 23:20] VITALS: BP 114/71; PULSE 64; RESP 18; O2SAT 99
[2019-07-10 23:21] VITALS: BP 114/71; PULSE 66; RESP 18; O2SAT 98
--- NOTE | 2019-07-10 23:31 | DI.VRAD_ITS ---
Addendum created by Yvette Desai MD on 07/10/2019 11:31:56 PM EST THIS REPORT CONTAINS FINDINGS THAT MAY BE CRITICAL TO PATIENT CARE. The findings were verbally communicated via telephone conference with RAS WEBB at 11:31 PM EST on 07/10/2019. The findings were acknowledged and understood. Initial report created on 07/10/2019 11:30:54 PM EST PROCEDURE INFORMATION: Exam: CT Angiography Chest With Contrast Exam date and time: 07/10/2019 11:11 PM Age: 23 years old Clinical indication: Shortness of breath; Patient HX: Dvt, suspect pe, SOB, cp x8+/- hours. Recently gave (3 weeks ago) TECHNIQUE: Imaging protocol: Computed tomographic angiography of the chest with intravenous contrast. 3D rendering: MIP and/or 3D reconstructed images were created by the technologist. Radiation optimization: All CT scans at this facility use at least one of these dose optimization techniques: automated exposure control; mA and/or kV adjustment per patient size (includes targeted exams where dose is matched to clinical indication); or iterative reconstruction. Contrast material: [id number]; Contrast volume: 100 ml; Contrast route: IV RAC 18G; COMPARISON: No relevant prior studies available. FINDINGS: Pulmonary arteries: There is a filling defect in a right lower lobe segmental and subsegmental branch (series 6, image 316) in keeping with pulmonary embolus. Several tiny subsegmental defects are seen in both lungs, for example series 6 image 350. No central or lobar filling defect. Aorta: Unremarkable. No aortic aneurysm. No aortic dissection. Lungs: The lungs show no consolidation or evidence of infarction. Mild lower lobe atelectasis. Pleural space: Unremarkable. No pneumothorax. No pleural effusion. Heart: Normal heart size without pericardial effusion. No evidence of right heart strain. Lymph nodes: Unremarkable. No enlarged lymph nodes. Bones/joints: Unremarkable. No acute fracture. Soft tissues: Unremarkable. IMPRESSION: Small bilateral pulmonary emboli at the segmental and subsegmental levels. No evidence of right heart strain. Dictated and Authenticated by: Yvette Desai MD. Ordering:GOVIND Dixon MD
[2019-07-10 23:59] VITALS: BP 108/38; PULSE 73; RESP 25; TEMP 36.8
== END 2019-07-11 | disposition home or self-care (01) ==
PROVIDERS: Emergency Provider Student in an Organized Health Care Education/Training Program; PCP Nurse Practitioner
DX: O88.23 Thromboembolism in the puerperium (principal); O87.1 Deep phlebothrombosis in the puerperium; R07.9 Chest pain, unspecified; R06.00 Dyspnea, unspecified
CPT/HCPCS: 36415; 71275; 80053; 85027; 86850; 86900; 86901; 93005; 96361; 96374; 99285; 83880; 84484; 85610; 85730; 93010; J2270; J3490

== ENCOUNTER 2020-01-06 01:13 | Outpatient (CLI) | payer OTHER, SELFPAY ==
[2020-01-06 12:20] LABS: Glucose,1 Hr (Glucola) 84 mg/dL (80-140)
[2020-01-06 13:17] LABS: TSH (W/Ref FT4) 1.49 uIU/mL (0.36-3.74)
[2020-01-07 09:24] LABS: Hepatitis B Surface Ag Negative (Negative)
[2020-01-07 10:03] LABS: HIV-1/2 Ag & Ab Screen Negative (Negative)
[2020-01-07 10:21] LABS: Rubella IgG Ab (UVM) Positive (See Note); Varicella IgG Antibody Positive (See Note)
[2020-01-07 10:45] LABS: Hepatitis C Ab w Rflx HCV PCR Negative (Negative)
[2020-01-07 16:02] LABS: Syphilis Total Ab w/Reflex Nonreactive (Nonreactive)
[2020-01-13 13:29] LABS: Specimen WB Whole Blood
== END 2020-01-06 01:33 ==
PROVIDERS: PCP Nurse Practitioner; Visit Provider Advanced Practice Midwife
DX: Z34.91 Encounter for supervision of normal pregnancy, unspecified, first trimester (principal); Z36.89 Encounter for other specified antenatal screening; Z11.4 Encounter for screening for human immunodeficiency virus [HIV]; Z11.59 Encounter for screening for other viral diseases; Z01.84 Encounter for antibody response examination
CPT/HCPCS: 36415; 81329; 82950; 86787; 86803; 86850; 86900; 86901; 87340; 87389; 84443; 85025; 86762; 86780

== ENCOUNTER 2020-01-06 12:52 | Outpatient (REF) | payer OTHER, SELFPAY ==
[2020-01-06 18:39] LABS: *AMPHETAMINES SCREEN URINE Negative (Negative); *BARBITURATES SCREEN URINE Negative (Negative); *BENZODIAZEPINES SCREEN URINE Negative (Negative); Cannabinoids THC Negative (Negative); Cocaine Screen,Urine Negative (Negative); METHADONE URINE SCREEN Negative (Negative); OPIATES URINE SCREEN Negative (Negative)
[2020-01-06 18:40] LABS: Tricyclic Antidepressants Negative (Negative)
[2020-01-07 15:16] LABS: Chlamydia Result Negative (Negative); GC Result Negative (Negative)
[2020-01-15 12:52] LABS: Buprenorphine Negative; Norbuprenorphine Negative
== END 2020-01-06 13:12 ==
LOC: LBN 12:52
PROVIDERS: PCP Nurse Practitioner; Visit Provider Advanced Practice Midwife
DX: Z34.91 Encounter for supervision of normal pregnancy, unspecified, first trimester (principal); Z11.3 Encounter for screening for infections with a predominantly sexual mode of transmission
CPT/HCPCS: 80307; 87491; 87591; 87086

== ENCOUNTER 2020-02-23 00:57 | Outpatient (CLI) | payer OTHER, SELFPAY ==
--- NOTE | 2020-02-23 08:00 | DI.US_ITS ---
EXAM: US OB 2-3 TRIMESTER CLINICAL HISTORY: anatomy scan, O09.92. TECHNIQUE: Transabdominal obstetrical ultrasound performed. COMPARISON: US US OB 1ST TRIMESTER from 01/06/2020 FINDINGS: Transabdominal obstetrical ultrasound performed. FINDINGS: Number of fetuses: One. position: Varied positions during the examination. heart rate: 158 bpm. Placental location: Posterior and fundal no evidence of previa. BIOMETRIC DATA: EFW: 225 grms 28% Composite Age: 17 weeks 6 days EDC: 07/27/2020 Amniotic fluid index: Amount of fluid is within normal limits. ANATOMICAL SURVEY: Within normal limits. IMPRESSION: 1. Single live intrauterine gestation as above. 2. Normal anatomic survey. DATA REPOSITORY:
== END 2020-02-23 01:17 ==
PROVIDERS: PCP Nurse Practitioner; Visit Provider Obstetrics & Gynecology
DX: O09.92 Supervision of high risk pregnancy, unspecified, second trimester
CPT/HCPCS: 76805

== ENCOUNTER 2020-04-26 03:21 | Outpatient (CLI) | payer OTHER, SELFPAY ==
[2020-04-26 11:50] LABS: Abs Immature Grans 0.13 10^3/uL (0.0-0.06); Absolute Basophil Count 0.03 10^3/uL (0.0-0.2); Absolute Eosinophil Count 0.09 10^3/uL (0.0-0.7); Absolute Lymphocyte Count 1.88 10^3/uL (1.2-3.4); Absolute Neutrophil Count 10.54 10^3/uL (1.2-6.7); Basophils % 0.2; Eosinophils % 0.7; HCT 35.7 % (36.0-46.0); HGB 11.6 g/dL (11.2-15.7); Lymphocytes % 14.3; MCH 28.8 pg (27.0-33.0); MCHC 32.5 % (32.0-36.0); MCV 88.6 fL (80-95); MPV 10.4 fL (8.0-11.0); Monocytes % 3.8; Nucleated RBC 0 %; Platelet Count 243 10^3/uL (130-400); RBC 4.03 10^6/uL (3.93-5.22); RDW 12.5 % (11.7-14.6); RDW-SD 40.4 fL; WBC 13.17 10^3/uL (4.4-10.8)
[2020-04-26 12:01] LABS: Glucose,1 Hr (Glucola) 129 mg/dL (80-140)
== END 2020-04-26 03:41 ==
PROVIDERS: PCP Nurse Practitioner; Visit Provider Obstetrics & Gynecology
DX: O09.93 Supervision of high risk pregnancy, unspecified, third trimester (principal); Z3A.27 27 weeks gestation of pregnancy; Z86.718 Personal history of other venous thrombosis and embolism; Z86.711 Personal history of pulmonary embolism; Z79.01 Long term (current) use of anticoagulants; Z13.1 Encounter for screening for diabetes mellitus
CPT/HCPCS: 36415; 82950; 85025

== ENCOUNTER 2020-06-27 18:07 | Outpatient (REF) | payer OTHER, SELFPAY ==
[2020-06-27 18:06] LABS: *AMPHETAMINES SCREEN URINE Negative (Negative); *BARBITURATES SCREEN URINE Negative (Negative); *BENZODIAZEPINES SCREEN URINE Negative (Negative); Cannabinoids THC Negative (Negative); Cocaine Screen,Urine Negative (Negative); METHADONE URINE SCREEN Negative (Negative); OPIATES URINE SCREEN Negative (Negative)
[2020-06-27 18:09] LABS: Tricyclic Antidepressants Negative (Negative)
[2020-07-03 12:24] LABS: Buprenorphine Negative
== END 2020-06-27 18:27 ==
LOC: LBN 18:07
PROVIDERS: PCP Nurse Practitioner; Visit Provider Obstetrics & Gynecology
DX: O09.893 Supervision of other high risk pregnancies, third trimester (principal); R82.90 Unspecified abnormal findings in urine; Z3A.36 36 weeks gestation of pregnancy
CPT/HCPCS: 80307; 87081; 87086

== ENCOUNTER 2020-07-06 01:22 | Observation (INO) | payer OTHER, SELFPAY ==
--- NOTE | 2020-07-06 | DI.CT_ITS ---
EXAM: CT CHEST PE CTA CLINICAL HISTORY: 37w EGA with chest pain, hx of PE on anticoag. TECHNIQUE: Imaging Protocol: CT angiography of the chest was performed using pulmonary embolus [facility]. Multi planar reconstructions were performed. CONTRAST MATERIAL: Intravenous: Omnipaque 350 Contrast volume: 84 cc COMPARISON: CT CT CHEST PE CTA from 07/10/2019 FINDINGS: CHEST: PULMONARY ARTERIES: There are presently no intraluminal filling defects to suggest acute pulmonary em boli. LUNGS: There are no confluent infiltrates nor evidence of pulmonary infarction. And mild increased m arkings in both lungs probably a combination of suboptimal inspiration independent markings.. There are no pleural effusions. MEDIASTINUM: There is no hilar nor mediastinal adenopathy. Visualized thyroid unremarkable. CARDIAC: Heart size is upper normal. There is no pericardial effusion.Caliber of the thoracic aorta is within normal limits. There is no evidence of shift of the interventricular septum. PARTIALLY VISUALIZED UPPERMOST ABDOMEN: No obvious findings OSSEOUS: No significant osseous lesions.. IMPRESSION: 1. No evidence of acute pulmonary emboli. No evidence of pulmonary infarction.No pleural effusions. 2. Mild increased markings in the lung smith noted which is probably related to suboptimal inspirati on dependent markings. 3. No evidence of obvious right heart strain. RADIATION DOSE DELIVERED: LINK-TO-SR Total DLP DATA REPOSITORY: All CT scans at this facility are submitted to the National Radiology Data Registry (NRDR) Dose Index Registry (DIR) with the [employer] (ACR). RADIATION OPTIMIZATION: All CT scans at this facility use at least one of these dose optimization te chniques: automated exposure control; mA and/or kV adjustment per patient size (includes targeted exa ms where dose is matched to clinical indication); or iterative reconstruction.
[2020-07-06 01:24] VITALS: BP 139/60; PULSE 84
[2020-07-06 01:29] VITALS: BP 139/60; PULSE 101; RESP 20; TEMP 36.6; O2SAT 98
--- NOTE | 2020-07-06 01:35 | W.PM.HP.N ---
Date of service: 07/06/20 Time of Service: 01:35 Assessment and Plan Assessment and plan (1) High-risk in third trimester: Status: Acute Assessment and plan: Pt on chronic anticoagulation with abd/chest pain. Stable VS with 100% oxygenation on room air. No evidence of LE edema or tenderness. Currently w/o contractions by external toco, category 1 FHR tracing. Will continue to observe. Awaiting labs. (2) Abdominal pain affecting : Status: Acute (3) Chronic anticoagulation: Status: Acute Assessment and plan: Pt reports taking her last dose of Enoxaparin yesterday morning. Forgot last night's dose. I will hold all anticoagulation until pt's clearer picture of pt's status is determined. History of Present Illness History of Present Illness Chief Complaint: abdominal pain @ 37w4d EGA Narrative: Pt is a female currently 37w4d EGA who called [facility] to report the onset of midline, upper abdominal pain beginning ~ 0015 hours. She described the pain as sharp and radiating to her back. Had a BM and with Valsalva became nauseated, no emesis. Similar episode of discomfort a week ago that lasted an hour and resolved after a single emesis. Review of Systems Constitutional Constitutional: Reports as per HPI and Denies chills Cardiovascular Cardiovascular: Denies rapid heart rate, Denies claudication and Denies dyspnea on exertion Respiratory Respiratory: Denies chest congestion, Denies pain on inspiration and Denies dyspnea on exertion Gastrointestinal Gastrointestinal: Denies change in bowel habits, Reports nausea and Denies vomiting Genitourinary Genitourinary: Denies abnormal vaginal bleeding Musculoskeletal Musculoskeletal: Denies system reviewed and no additional complaints, except as documented Integumentary/Breasts Skin/Breast: Reports system reviewed and no additional complaints, except as documented Psychiatric Psychiatric: Reports system reviewed and no additional complaints, except as documented [facility] Medical History (Updated 07/06/20 @ 01:53 by Nicolle Akers MD) Abdominal pain affecting Ankle fracture 2011 BMI 37.0-37.9, adult CAP (community acquired pneumonia) Chronic anticoagulation DVT of lower extremity (deep venous thrombosis) 2017. Began OCPs shortly before fractured ankle with prolonged immobility. 2018 thrombophilia eval negative. 2019. Rx with prophylactic anticoagulation during . Encounter for induction of labor Excessive and frequent menstruation with irregular cycle Onset early adolescence. Rx with OCPs and most recently Depo-Provera last injection 07/2017. Menses now monthly. DANNA (generalized anxiety disorder) Rx with sertraline and ? Ativan. Not effective. Uses MJ to treat anxiety. Is open to counseling. Herpes zoster without complication Intractable cyclical vomiting with nausea Morbid obesity Sciatica Sciatica, right side Supervision of high risk in second trimester Family History (Updated 01/06/20 @ 13:57 by Marce Orellana CNM) Father Heart disease Mother Depression Maternal Grandfather Heart disease Maternal Grandmother Stroke 70-80s Sister Depression Social History Smoking/Tobacco Use Status: Never Smoking risk assessment performed?: Yes Alcohol Intake: former Details: Patient denies having an issue with alcohol Drug use: Never Substance use type: former substance user Details: Marijuana use several times a week since 15yo for control of anxiety Household members: other Housing: apartment Number of Children: 0 Education Level: other 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 Date GA/Weeks # Outcome Route Wgt Sex Labor Lgth Anesthesia Location Prov Complic 06/13/19 39 No Successful vaginal 8 lb 2 oz Male 42 hour induction regional A[facility] Delivery Date: 06/13/19 Induction of labor at term secondary to anticoagulation during this . . Intact perineum. Dante Dominguez. DVT and PE 2-3 weeks post post , Treated with Marce Demarco Home Medications and Allergies Home Medications Medication Instructions Recorded Confirmed Type prenat.vits,micheal,obx-ycne-zpfap 1 tab PO DAILY 10/15/18 06/27/20 History enoxaparin 80 mg/0.8 mL 80 mg SC DAILY #30 ml 01/18/20 06/27/20 Rx subcutaneous syringe nmtcpqphbt-ffbrrvzzjeuil-xyxpkpws 1 cap PO TID PRN #20 cap 04/12/20 06/27/20 Rx 50 mg-300 mg-40 mg capsule enoxaparin 40 mg/0.4 mL 40 mg SUBCUT Q12H #6 ml 06/27/20 06/27/20 Rx subcutaneous syringe Allergies Allergy/AdvReac Type Severity Reaction Status Date / Time No Known Allergies Allergy Verified 06/10/20 10:13 Exam Const General: no acute distress Nutritional Appearance: obese Orientation: alert, awake and oriented x3 Neck Neck: normal visual inspection Chest Chest: normal inspection of the chest Resp Effort & Inspection: normal respiratory effort and able to speak in complete sentences Auscultation: clear to auscultation bilaterally Cardio Rate: regular rate Rhythm: regular rhythm GI Inspection: normal to inspection Palpation: soft (gravid) and tender other (generalized tenderness R&L upper quadrant. tenderness mid thoracic vertebrae.) Percussion: normal to percussion Rectal Exam - female: deferred General: deferred Back/Spine/Pelvis Back: no CVA tenderness Cervical Spine: normal cervical lordosis Pelvis: no pain with anterior-posterior compression and no pain with lateral compression Skin General skin exam: no rashes or lesions noted Extrem General: normal to inspection, full ROM, no clubbing, cyanosis or edema and no calf tenderness Psych Appearance: grossly normal Mental Status: mental status grossly normal Mood: anxious mood (declines pain meds) Results Labs Result diagrams: 07/06/20 01:22 07/06/20 01:33 Last Vital Signs Pulse 84 07/06/20 01:24 BP 139/60 07/06/20 01:24 COVID-19 Screening Have you, or household traveled for leisure in last 14 days?: No
[2020-07-06 01:40] VITALS: BP 120/56; PULSE 78
[2020-07-06 01:54] VITALS: BP 124/70; PULSE 79
--- NOTE | 2020-07-06 02:00 | RT.EKG_ITS ---
APPROVED REPORT Exam: Resting ECG Patient Location: I HR:83 bpm ECG Measurements Heart Rate 83 AXIS DC 150 P 5 QRSd 84 QRS 7 QT 369 T 6 QTc 435 Conclusion Sinus rhythm...normal P axis, V-rate 60- 99 Normal Electrocardiogram
[2020-07-06 02:02] LABS: HCT 34.1 % (36.0-46.0); HGB 10.9 g/dL (11.2-15.7); MCH 27.2 pg (27.0-33.0); MPV 10.7 fL (8.0-11.0); Platelet Count 270 10^3/uL (130-400); RBC 4.01 10^6/uL (3.93-5.22); RDW 13.4 % (11.7-14.6); RDW-SD 41.4 fL; WBC 14.51 10^3/uL (4.4-10.8)
[2020-07-06 02:15] LABS: ALT 19 U/L (14-59); AST 14 U/L (15-37); Albumin 2.5 g/dL (3.4-5.0); Alkaline Phosphatase 97 U/L (46-116); Amylase 51 U/L (25-115); Anion Gap 10.9 mmol/L (3-11); BUN 8 mg/dL (7-18); Bilirubin, Total 0.4 mg/dL (0.2-1.0); CO2 24.1 mmol/L (21.0-32.0); CREATININE 0.57 mg/dL (0.55-1.02); Chloride 103 mmol/L (98-107); Glucose 94 mg/dL (74-106); Lipase 75 U/L (73-393); Sodium 138 mmol/L (136-145); Total Protein 6.4 g/dL (6.4-8.2)
[2020-07-06] MEDS: Simethicone 80 MG CHEW 160 MG PO (02:16)
--- NOTE | 2020-07-06 02:17 | W.PM.PROGNOT ---
Date of Service Date of service: 07/06/20 Time of Service: 02:18 Assessment and Plan Assessment and plan (1) Abdominal pain affecting : Status: Acute Assessment and plan: will order CT of chest to eval for PE. Subjective Subjective Patient reports: still having pain and nausea Interval history since last seen: VSS. Continues with chest and back pain. Exam Const General: no acute distress Objective Last Vital Signs Temp 97.9 F 07/06/20 01:29 Pulse 79 07/06/20 01:54 Resp 20 07/06/20 01:29 BP 124/70 07/06/20 01:54 Pulse Ox 98 07/06/20 01:29 Laboratory Results - last 24 hr 07/06/20 01:50 WBC 14.51 H RBC 4.01 Hgb 10.9 L Hct 34.1 L MCV 85.0 MCH 27.2 MCHC 32.0 RDW 13.4 Plt Count 270 MPV 10.7
[2020-07-06] MEDS: Ondansetron 4 MG/2 ML VIAL IVP (02:42)
[2020-07-06] MEDS: Lactated Ringers 1,000 ML 125 ML IV (02:44)
[2020-07-06] MEDS: Pantoprazole 40 MG VIAL IVP (02:44)
[2020-07-06] MEDS: Omnipaque 350 MG/ML 100 ML BTL IJ (03:53)
[2020-07-06] MEDS: Normal Saline - Diluent 50 ML VIAL IV (03:55)
[2020-07-06] MEDS: Normal Saline Flush 10 ML SYR (03:56)
--- NOTE | 2020-07-06 03:59 | DI.VRAD_ITS ---
PROCEDURE INFORMATION: Exam: CT Angiography Chest With Contrast Exam date and time: 07/06/2020 2:28 AM Age: 24 years old Clinical indication: Type not specified; Patient HX: 37 w ega, chest pain, HX of pe, on anticoag TECHNIQUE: Imaging protocol: Computed tomographic angiography of the chest with intravenous contrast. 3D rendering (Not supervised by radiologist): MIP and/or 3D reconstructed images were created by the technologist. Radiation optimization: All CT scans at this facility use at least one of these dose optimization techniques: automated exposure control; mA and/or kV adjustment per patient size (includes targeted exams where dose is matched to clinical indication); or iterative reconstruction. Contrast material: OMNIPAQUE 350; Contrast volume: 84 ml; Contrast route: INTRAVENOUS (IV); COMPARISON: CT CHEST PE CTA 07/10/2019 11:14 PM FINDINGS: Pulmonary arteries: There is no evidence for PE. Aorta: Unremarkable. No aortic aneurysm. No aortic dissection. Lungs: Basilar dependent pulmonary atelectasis is present. Peribronchial cuffing is present which is nonspecific, and which may reflect acute or chronic bronchial inflammation. Alternatively, this may reflect an element of reactive airways disease. Groundglass attenuation may reflect microatelectasis related to bronchial wall thickening.. Pleural space: Unremarkable. No pneumothorax. No pleural effusion. Heart: Unremarkable. No cardiomegaly. No pericardial effusion. Lymph nodes: Unremarkable. No enlarged lymph nodes. Bones/joints: Unremarkable. No acute fracture. Soft tissues: Unremarkable. IMPRESSION: 1. Nonspecific peribronchial cuffing. 2. Groundglass attenuation may reflect microatelectasis related to bronchial wall thickening.. Dictated and Authenticated by: Ren Busch MD. Ordering:OZZIE Valverde MD
--- NOTE | 2020-07-06 04:18 | W.PM.PROGNOT ---
Date of Service Date of service: 07/06/20 Time of Service: 04:18 Assessment and Plan Assessment and plan (1) Chronic anticoagulation: Status: Acute Assessment and plan: Pt was counseled to resume twice daily dosing of Enoxaparin (2) Abdominal pain affecting : Status: Acute Assessment and plan: resolved. Will order out pt RUQ u/s. Subjective Subjective Patient reports: feels better Interval history since last seen: Pt has returned from CT and pain has resolved. No PE on VRads report. All labs nl. I recommended discharge to home. Objective Last Vital Signs Temp 97.9 F 07/06/20 01:29 Pulse 79 07/06/20 01:54 Resp 20 07/06/20 01:29 BP 124/70 07/06/20 01:54 Pulse Ox 98 07/06/20 01:29 Laboratory Results - last 24 hr 07/06/20 07/06/20 07/06/20 01:50 01:50 01:50 WBC 14.51 H RBC 4.01 Hgb 10.9 L Hct 34.1 L MCV 85.0 MCH 27.2 MCHC 32.0 RDW 13.4 Plt Count 270 MPV 10.7 Sodium 138 Potassium 4.0 Chloride 103 Carbon Dioxide 24.1 Anion Gap 10.9 BUN 8 Creatinine 0.57 Estimated GFR/1.73 m2 >= 60.00 Glucose 94 Calcium 8.0 L Total Bilirubin 0.4 AST 14 L ALT 19 Alkaline Phosphatase 97 Total Protein 6.4 Albumin 2.5 L Amylase 51 Lipase 75 Patient ABO/Rh A Positive Antibody Screen Negative
== END 2020-07-06 05:00 | disposition home or self-care (01) ==
PROVIDERS: Admitting Provider Obstetrics & Gynecology Gynecology; PCP Nurse Practitioner; Visit Provider Obstetrics & Gynecology Gynecology
DX: O26.899 Other specified pregnancy related conditions, unspecified trimester (principal); R10.9 Unspecified abdominal pain; Z79.01 Long term (current) use of anticoagulants; Z86.718 Personal history of other venous thrombosis and embolism; O99.213 Obesity complicating pregnancy, third trimester; E66.01 Morbid (severe) obesity due to excess calories; Z3A.37 37 weeks gestation of pregnancy; O99.343 Other mental disorders complicating pregnancy, third trimester; F41.1 Generalized anxiety disorder; O99.353 Diseases of the nervous system complicating pregnancy, third trimester; M54.31 Sciatica, right side
CPT/HCPCS: 36415; 71275; 80053; 83690; 85027; 86850; 86900; 86901; 96360; 96361; 99221; NC; 59025; 82150; 93005; 93010; J2405; J3490

== ENCOUNTER 2020-07-07 01:28 | Outpatient (CLI) | payer OTHER, SELFPAY ==
--- NOTE | 2020-07-07 08:15 | DI.US_ITS ---
EXAM: US ABDOMEN INDICATION: RUQ ABD PAIN, R10.9,O26.899 COMPARISON: US US OB 2-3 TRIMESTER from 02/23/[address] CHEST PE CTA from 07/06/2020 TECHNIQUE: Ultrasound abdomen performed using standard protocol FINDINGS: Abdominal ultrasound was performed according to the usual protocol. The liver is normal in size and shape. No focal hepatic lesion seen. There are multiple gallstones noted, there is no evidence of biliary dilatation. No gallbladder wall thickening or pericholecystic fluid collection. Negative sonographic Thurman sign. Pancreas appears intact as visualized. Spleen is unremarkable in appearance with no focal lesion. Kidneys are normal in size and shape. No renal mass, hydronephrosis, or nephrolithiasis. Abdominal aorta and IVC are of normal diameter. IMPRESSION: Cholelithiasis, no other significant findings.
--- NOTE | 2020-07-07 08:15 | DI.US_ITS ---
EXAM: US OB RADHA WEIGHT CLINICAL HISTORY: weight and position,O09.93 TECHNIQUE: Ultrasound performed using standard protocol. COMPARISON: US US ABDOMEN from 07/07/2020 FINDINGS: Ob ultrasound was performed utilizing limited 3rd trimester protocol. biometry is consistent w ith a gestational age of 36 weeks 1 day and EDC August 03. Estimated weight is 2888 grams which is at the 24th percentile for predicted gestational age. Placenta is posterior with no placenta previa. Fetus is in cephalic position. cardiac rate is 149 BPM. There is visually a normal quantity of amniotic fluid and the RADHA is 14. IMPRESSION: DATA REPOSITORY:
== END 2020-07-07 01:48 ==
PROVIDERS: PCP Nurse Practitioner; Visit Provider Obstetrics & Gynecology
DX: O99.613 Diseases of the digestive system complicating pregnancy, third trimester (principal); Z3A.36 36 weeks gestation of pregnancy; R10.9 Unspecified abdominal pain
CPT/HCPCS: 76816; 76700

== ENCOUNTER 2020-07-18 18:41 | Inpatient (IN) | payer OTHER, SELFPAY ==
--- NOTE | 2020-07-14 14:47 | W.PM.OBHPL1 ---
Date of service: 07/14/20 Time of Service: 14:47 Assessment and Plan Assessment and plan (1) , high-risk: Status: Acute Assessment and plan: Patient is a 24 2 para 1 at 39 weeks and 2 days. She is a high risk for history of DVT and PE. Throughout her she has been fully anticoagulated on Lovenox. She has been seen by [facility] hematology and oncology service. She does understand to stop her Lovenox 12 hours prior to presentation. She does understand her risk of recurrent thromboembolic events. Risk benefits alternatives of labor induction including potential need for delivery, risk of hemorrhage, risk of retained placenta, risk of shoulder dystocia were all of explained to the patient full informed consent was obtained. She will present to the hospital for cervical ripening as her cervix is unfavorable today in the office. 1 cervix is ripe, Pitocin augmentation will be undertaken. Anesthesia is aware of her history and presence and will have baseline laboratory studies performed. She will also use compression stockings during the time that she is not ambulatory. (2) High BMI: Status: Acute (3) History of DVT (deep vein thrombosis): Status: Acute (4) DANNA (generalized anxiety disorder): Status: Chronic (5) Chronic anticoagulation: Status: Acute OB-HPI Labor/Delivery History of Present Illness Chief Complaint: Scheduled Induction of Labor Indication for Induction: Other (Patient anticoagulated, term induction for timing of discontinuation of anticoagulation). JEISON Calculator Estimated Delivery Date Method Current WG Current Estimate 07/23/20 LMP (Certain) 38w 5d Other Estimates 07/23/20 Ultrasound #1 38w 5d History of Present Expected Delivery Route/Plan KAVYA - MD VALIENTE -Zack Dominguez (second baby together) Specific Issues/Plan 1. History of DVT/PE while on anticoagulation. 01/11/20. [facility] [place] [facility] [place] Lovenox 80mg /day. Plan repeat [facility] [place] 4w prior to delivery. Plan change to Lovenox 40mg BID at 36w EGA. Stop Lovenox 24hrs prior to IOL. PP anticoagulation for 3mo after delivery 2. Known CF carrier screen negative 3. 07/05/20. RUQ pain. CT of chest: neg for PE. 07/07/20: Cholelithiasis.Will refer to General Surgery at [facility] for eval PP. Assessment: History Reviewed & Current Narrative: Patient presents at 39 weeks and 2 days for cervical ripening and subsequent labor induction. She has a significantly high risk during her due to her history of thromboembolism with both DVT and PE. She has been fully anticoagulated throughout her on Lovenox which has most recently been changed to split dosing morning and afternoon. She has discontinued her Lovenox 12 hours prior to presentation. She understands the risk, benefits, and alternatives of labor induction. She will have pneumatic compression stockings throughout her labor when she is not ambulatory. Informed Consent Informed Consent: Induction of Labor and Risk,Benefits,Alternatives Discussed Review of Systems All systems reviewed & are unremarkable except as noted in HPI and below Constitutional Constitutional: Reports as per HPI, Denies chills, Denies fatigue, Denies fever(s), Denies poor appetite and Denies weight loss Cardiovascular Cardiovascular: Reports system reviewed and no additional complaints, except as documented, Denies chest pain at rest, Denies chest pain with activity, Denies rapid heart rate, Denies irregular heart rhythm and Denies dyspnea Respiratory Respiratory: Reports system reviewed and no additional complaints, except as documented, Denies chest congestion, Denies cough, Denies pain with cough and Denies dyspnea Gastrointestinal Gastrointestinal: Reports system reviewed and no additional complaints, except as documented Genitourinary Genitourinary: Reports system reviewed and no additional complaints, except as documented Neurologic Neurologic: Reports system reviewed and no additional complaints, except as documented Psychiatric Psychiatric: Reports system reviewed and no additional complaints, except as documented Endocrine Endocrine: Denies fatigue Hematologic/Lymphatic Hematologic/Lymphatic: Reports system reviewed and no additional complaints, except as documented and Reports as per HPI [facility] Medical History Abdominal pain affecting Ankle fracture 2011 BMI 37.0-37.9, adult CAP (community acquired pneumonia) Chronic anticoagulation DVT of lower extremity (deep venous thrombosis) 2017. Began OCPs shortly before fractured ankle with prolonged immobility. 2018 thrombophilia eval negative. 2019. Rx with prophylactic anticoagulation during . Encounter for induction of labor Excessive and frequent menstruation with irregular cycle Onset early adolescence. Rx with OCPs and most recently Depo-Provera last injection 07/2017. Menses now monthly. DANNA (generalized anxiety disorder) Rx with sertraline and ? Ativan. Not effective. Uses MJ to treat anxiety. Is open to counseling. Herpes zoster without complication Intractable cyclical vomiting with nausea Morbid obesity Sciatica Sciatica, right side Supervision of high risk in second trimester Family History Father Heart disease Mother Depression Maternal Grandfather Heart disease Maternal Grandmother Stroke 70-80s Sister Depression Social History Smoking/Tobacco Use Status: Never Smoking risk assessment performed?: Yes Alcohol Intake: former Details: Patient denies having an issue with alcohol Drug use: Never Substance use type: former substance user Details: Marijuana use several times a week since 15yo for control of anxiety Household members: other Housing: apartment Number of Children: 0 Education Level: other 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 Date GA/Weeks # Outcome Route Wgt Sex Labor Lgth Anesthesia Location Prov Complic 06/13/19 39 No Successful vaginal 8 lb 2 oz Male 42 hour induction regional [facility] Delivery Date: 06/13/19 Induction of labor at term secondary to anticoagulation during this . . Intact perineum. Dante Dominguez. DVT and PE 2-3 weeks post post , Treated with Marce Demarco Home Medications and Allergies Home Medications Medication Instructions Recorded Confirmed Type prenat.vits,micheal,kgm-kqal-sfqzo 1 tab PO DAILY 10/15/18 07/14/20 History enoxaparin 80 mg/0.8 mL 80 mg SC DAILY #30 ml 01/18/20 07/14/20 Rx subcutaneous syringe [id number]-kuqayafofbaqi-iydeyjks 1 cap PO TID PRN #20 cap 04/12/20 07/14/20 Rx 50 mg-300 mg-40 mg capsule enoxaparin 40 mg/0.4 mL 40 mg SUBCUT Q12H #6 ml 06/27/20 07/14/20 Rx subcutaneous syringe Allergies Allergy/AdvReac Type Severity Reaction Status Date / Time No Known Allergies Allergy Verified 07/14/20 10:36 Exam Physical Exam Narrative: Examination performed at routine care today. Constitutional Constitutional: no acute distress and cooperative Detailed Labor and Delivery Exam Amin Score: Cervical Points Exam 0 1 2 3 Dilation Closed 1-2cm 3-4 cm 5-6cm Effacement 0-30% 40-50% 60-70% 80% Consistency Firm Medium Soft Station -3 -2 -1,0 +1,+2 Position Posterior Mid Anterior Cervix is 1 cm, 30% effaced, soft, posterior, -3 station with a Amin score of 3 Fetus A Heart Rate Baseline: 160 Presentation: Vertex Est. Weight: 8 lb HEENT Exam HEENT Exam: Normal Neck Exam Neck Exam: Normal Respiratory Exam Respiratory Exam: Normal Cardiovascular Exam Cardiovascular Exam: Normal Exam Exam: Normal Extremities Exam Extremities Exam: Normal Skin Exam Skin Exam: Normal Neurological Exam Neurological Exam: Normal Psychiatric Exam Psychiatric Exam: Normal Risk Assessment Risk for Shoulder Dystocia Historical/Initial OB: POSITIVE FOR: Pre- BMI>30; NEGATIVE FOR: Pelvic Abnormality, Previous Shoulder Dystocia or Previous Macrosomia 40 Weeks: NEGATIVE FOR: EFW> 4500 gms, Maternal Weight Gain >40lb or Post Dates Increased Risk?: Yes Date/Initial: KJ 07/14/20 Delivery Plan @ 40 wks: Labor induction at 39 weeks Risk for Pre-Eclampsia Date Initiated/Initials: 01/06/20 KM Yes, if one or more: NEGATIVE FOR: Hx Pre-E/Gest HTN, Chronic HTN, Multiple Gestation, Pre-gestational DM, Renal Disease, Systemic Lupus or APA Syndrome Yes, if 2 or more: POSITIVE FOR: BMI>30; NEGATIVE FOR: Nulliparity, Age>= 35 yrs, >10yr btwn pregnancies, ethinicty, Mother/Sister w/ Pre-E or Previous IUGR Risk for Post- Hemorrhage Initial: POSITIVE FOR: Anticoagulation; NEGATIVE FOR: Multiple Gestation, Previous PPH, Known Clotting Deficiency or Grand Multiparity At Risk?: Yes Interventions: IVs, uterotonic's as needed, active management Counseled re: Active Management: Yes Date/Initials: 07/14/20 CHRISTI Risks Reviewed Risks Reviewed Upon Admission: Yes
--- NOTE | 2020-07-18 18:56 | PGE_ITS ---
Date of service: 07/18/20 Time of Service: 18:56 Informed Consent Informed Consent: Induction of Labor and Risk,Benefits,Alternatives Discussed Pelvic Exam Comments: Vaginal exam deferred. Patient reports no significant contractions since last [facility] office visit. Contractions Monitor Mode: External Contraction Frequency(min): None Fetus A Monitor: External (US) Heart Rate Baseline: 150 Presentation: Cephalic (By Edwar's) Variability: Moderate (6-25 BPM) Categories: Category I FHR Rhythm: Regular Characteristics: Normal Accelerations: 15 X 15 Decelerations: None Amniotic Membrane Status: Intact Assessment and Plan Assessment and plan (1) High-risk in third trimester: Status: Acute Assessment and plan: SCDs in place overnight. (2) Elective induction of labor planned: Status: Acute Assessment and plan: Misoprostol cervical ripening overnight and oxytocin infusion in a.m. Objective Vital Signs Reviewed: Yes Objective Narrative Objective Narrative: Patient presents for induction of labor at term. The plan is to perform cervical ripening overnight with oral misoprostol. CBC PT, type and screen will be obtained. A saline lock will be Subjective Patient Reports: No new Complaints Interval history since last seen: Patient reports having taken her last Lovenox injection yesterday evening. No Lovenox administered this morning. No contractions. She reports good movement. Interventions Induction Indication: Other (Chronic anticoagulation, history DVT) , Type of I nduction: Misoprostol administration: Oral and Cervical Ripening , Induction Note: Plan oxytocin infusion on 07/19/2020 .
[2020-07-18] MEDS: Normal Saline Flush 10 ML SYR IVP (19:00)
[2020-07-18 19:18] LABS: HGB 10.7 g/dL (11.2-15.7); MCH 26.8 pg (27.0-33.0); MCHC 31.5 % (32.0-36.0); MPV 11.2 fL (8.0-11.0); Platelet Count 231 10^3/uL (130-400); RDW 13.7 % (11.7-14.6); RDW-SD 41.6 fL; WBC 11.79 10^3/uL (4.4-10.8)
[2020-07-18] MEDS: miSOPROStol 25 MCG TAB PO ×2 (19:21→23:28)
[2020-07-18 19:24] VITALS: BP 115/70; PULSE 95; RESP 18; TEMP 36.9; O2SAT 99
[2020-07-18 19:25] VITALS: BP 115/70; PULSE 95; RESP 18; TEMP 36.9; O2SAT 99
[2020-07-18 19:28] LABS: Prothrombin Time 10.5 sec (9.3-11.0)
[2020-07-18 23:05] VITALS: BP 109/62; PULSE 66; RESP 18; TEMP 36.6; O2SAT 98
[2020-07-18] MEDS: Zolpidem 5 MG TAB 10 MG PO (23:28)
[2020-07-19] VITALS (12 sets, daily range): BP systolic 91–113; BP diastolic 54–74; PULSE 52–95; RESP 16–18; TEMP 36.7–36.9; O2SAT 98
[2020-07-19] MEDS: miSOPROStol 25 MCG TAB PO ×2 (03:50→20:48)
--- NOTE | 2020-07-19 08:04 | W.PM.OBNL1 ---
Date of service: 07/19/20 Time of Service: 08:04 Informed Consent Informed Consent: Induction of Labor and Risk,Benefits,Alternatives Discussed Assessment and Plan Assessment and plan (1) Elective induction of labor planned: Status: Acute (2) Chronic anticoagulation: Status: Acute (3) High-risk in third trimester: Status: Acute (4) Deep vein thrombosis (DVT), : Status: Acute Objective Abnormal lab results 07/18/20 Range/Units 19:06 WBC 11.79 H (4.4-10.8) 10^3/uL Hgb 10.7 L (11.2-15.7) g/dL Hct 34.0 L (36.0-46.0) % MCH 26.8 L (27.0-33.0) pg MCHC 31.5 L (32.0-36.0) % MPV 11.2 H (8.0-11.0) fL Temp Pulse Resp BP Pulse Ox 98.2 F 81 16 112/74 98 07/19/20 05:59 07/19/20 05:59 07/19/20 05:59 07/19/20 05:59 07/19/20 05:59 Laboratory Results WBC 11.79 10^3/uL (4.4-10.8) H 07/18/20 19:06 RBC 4.00 10^6/uL (3.93-5.22) 07/18/20 19:06 Hgb 10.7 g/dL (11.2-15.7) L 07/18/20 19:06 Hct 34.0 % (36.0-46.0) L 07/18/20 19:06 MCV 85.0 fL (80-95) 07/18/20 19:06 MCH 26.8 pg (27.0-33.0) L 07/18/20 19:06 MCHC 31.5 % (32.0-36.0) L 07/18/20 19:06 RDW 13.7 % (11.7-14.6) 07/18/20 19:06 Plt Count 231 10^3/uL (130-400) 07/18/20 19:06 MPV 11.2 fL (8.0-11.0) H 07/18/20 19:06 PT 10.5 sec (9.3-11.0) 07/18/20 19:06 INR 1.0 (0.9-1.1) 07/18/20 19:06 Patient ABO/Rh A Positive 07/18/20 19:06 Antibody Screen Negative 07/18/20 19:06 Subjective Patient Reports: No new Complaints Interval history since last seen: Patient received 3 doses of Cytotec through the night. She is having irregular menstrual type cramps. Baby is active. Category 1 heart rate tracing. We discussed placement of a Au balloon for continued cervical ripening with Pitocin augmentation. Au balloon attempted to be inserted balloon dilated and fell out into the vagina. Cervix is 2 to 3 cm soft high mid position. Ultrasound confirmed vertex position patient has no other complaints at this time. Interventions Induction Indication: Other (Chronic anticoagulation) , Type of Induction: Pitocin , Results Hemoglobin/Hematocrit: Hgb 10.7 g/dL (11.2-15.7) L 07/18/20 19:06 Hct 34.0 % (36.0-46.0) L 07/18/20 19:06 Abnormal Lab Findings: Abnormal Labs 07/18/20 19:06 WBC 11.79 H Hgb 10.7 L Hct 34.0 L MCH 26.8 L MCHC 31.5 L MPV 11.2 H Procedure Procedures: Cervical Ripening
[2020-07-19] MEDS: Normal Saline Flush 10 ML SYR IVP (08:14)
[2020-07-19] MEDS: Lactated Ringers 1,000 ML 200 ML IV ×2 (08:15→15:16)
[2020-07-19] MEDS: Oxytocin/Normal Saline 30 UNIT/500 ML BAG 1 UNITS IV (09:00)
--- NOTE | 2020-07-19 19:52 | W.PM.OBNL1 ---
Date of service: 07/19/20 Time of Service: 19:53 Informed Consent Informed Consent: Induction of Labor and Risk,Benefits,Alternatives Discussed Assessment and Plan Assessment and plan (1) Elective induction of labor planned: Status: Acute Assessment and plan: Vaginal cytotec tonight. Pitocin with AROM in the AM as warranted Objective Temp Pulse Resp BP Pulse Ox 98.1 F 73 18 96/54 L 98 07/19/20 19:08 07/19/20 19:08 07/19/20 19:08 07/19/20 19:08 07/19/20 16:00 Laboratory Results WBC 11.79 10^3/uL (4.4-10.8) H 07/18/20 19:06 RBC 4.00 10^6/uL (3.93-5.22) 07/18/20 19:06 Hgb 10.7 g/dL (11.2-15.7) L 07/18/20 19:06 Hct 34.0 % (36.0-46.0) L 07/18/20 19:06 MCV 85.0 fL (80-95) 07/18/20 19:06 MCH 26.8 pg (27.0-33.0) L 07/18/20 19:06 MCHC 31.5 % (32.0-36.0) L 07/18/20 19:06 RDW 13.7 % (11.7-14.6) 07/18/20 19:06 Plt Count 231 10^3/uL (130-400) 07/18/20 19:06 MPV 11.2 fL (8.0-11.0) H 07/18/20 19:06 PT 10.5 sec (9.3-11.0) 07/18/20 19:06 INR 1.0 (0.9-1.1) 07/18/20 19:06 Patient ABO/Rh A Positive 07/18/20 19:06 Antibody Screen Negative 07/18/20 19:06 Subjective Patient Reports: No new Complaints Interval history since last seen: Has been on Pitocin all day with no significant cervical change. SVE 2, 50% -3. Too high for AROM. Will D/C pitocin. Allow dinner. Vaginal cytotec to follow for cervical ripening tonight Has PAS in place. Ambulating intermittently Results Hemoglobin/Hematocrit: Hgb 10.7 g/dL (11.2-15.7) L 07/18/20 19:06 Hct 34.0 % (36.0-46.0) L 07/18/20 19:06 Abnormal Lab Findings: Abnormal Labs 07/18/20 19:06 WBC 11.79 H Hgb 10.7 L Hct 34.0 L MCH 26.8 L MCHC 31.5 L MPV 11.2 H
--- NOTE | 2020-07-19 20:02 | NUR.NOTE ---
Nursing Note:At 1950 dr ford in to discuss plan with merlyn. The plan is to turn off the pitocin let her have dinner and then when pt is ready insert miso vaginally .
[2020-07-19 21:42] LABS: COVID-19 RT-PCR UVMMC Result Negative (Negative)
[2020-07-20] VITALS (49 sets, daily range): BP systolic 96–164; BP diastolic 51–81; PULSE 48–102; RESP 16–21; TEMP 36.4–36.7; O2SAT 97–100
--- NOTE | 2020-07-20 01:41 | NUR.NOTE ---
Nursing Note: repostioned side to side and then back t her back tocos adjusted
--- NOTE | 2020-07-20 02:07 | NUR.NOTE ---
dr ford in decision made to remove monitor and let flo sleep
--- NOTE | 2020-07-20 03:21 | PGE_ITS ---
Date of service: 07/20/20 Time of Service: : Informed Consent Informed Consent: Induction of Labor and Risk,Benefits,Alternatives Discussed Assessment and Plan Assessment and plan (1) Elective induction of labor planned: Status: Acute Assessment and plan: Cytotec this am. Pitocin with AROM when favorable (2) High-risk in third trimester: Status: Acute Objective Temp Pulse Resp BP Pulse Ox 98.3 F 53 L 18 104/53 L 98 07/19/20 20:35 07/20/20 03:19 07/20/20 01:57 07/20/20 03:19 07/19/20 16:00 Laboratory Results WBC 11.79 10^3/uL (4.4-10.8) H 07/18/20 19:06 RBC 4.00 10^6/uL (3.93-5.22) 07/18/20 19:06 Hgb 10.7 g/dL (11.2-15.7) L 07/18/20 19:06 Hct 34.0 % (36.0-46.0) L 07/18/20 19:06 MCV 85.0 fL (80-95) 07/18/20 19:06 MCH 26.8 pg (27.0-33.0) L 07/18/20 19:06 MCHC 31.5 % (32.0-36.0) L 07/18/20 19:06 RDW 13.7 % (11.7-14.6) 07/18/20 19:06 Plt Count 231 10^3/uL (130-400) 07/18/20 19:06 MPV 11.2 fL (8.0-11.0) H 07/18/20 19:06 PT 10.5 sec (9.3-11.0) 07/18/20 19:06 INR 1.0 (0.9-1.1) 07/18/20 19:06 SARS-CoV-2 (PCR) Negative (Negative) 07/18/20 18:30 Nasopharyn COVID-19 PCR Not Applicable 07/18/20 18:30 Ref Test Perform Site [facility] lab 07/18/20 18:30 Patient ABO/Rh A Positive 07/18/20 19:06 Antibody Screen Negative 07/18/20 19:06 Subjective Patient Reports: No new Complaints Interval history since last seen: Very few contractions. Baby is active. Category 1 strip. 25 mcg vaginal cytotec placed Results Hemoglobin/Hematocrit: Hgb 10.7 g/dL (11.2-15.7) L 07/18/20 19:06 Hct 34.0 % (36.0-46.0) L 07/18/20 19:06 Abnormal Lab Findings: Abnormal Labs 07/18/20 19:06 WBC 11.79 H Hgb 10.7 L Hct 34.0 L MCH 26.8 L MCHC 31.5 L MPV 11.2 H Procedure Procedures: Cervical Ripening Cervical Ripening: Misoprostol
[2020-07-20] MEDS: miSOPROStol 25 MCG TAB PO (03:25)
[2020-07-20] MEDS: Normal Saline Flush 10 ML SYR IVP (07:59)
[2020-07-20] MEDS: Lactated Ringers 1,000 ML 125 ML IV ×2 (08:00→15:06)
[2020-07-20] MEDS: Oxytocin/Normal Saline 30 UNIT/500 ML BAG 2 UNITS IV (08:40)
--- NOTE | 2020-07-20 09:02 | PGE_ITS ---
Date of service: 07/20/20 Time of Service: 09:03 Informed Consent Informed Consent: Induction of Labor and Risk,Benefits,Alternatives Discussed Pelvic Exam station: -4 (ballotable) Cervix Position: posterior Consistency: soft Vaginal Exam Presentation: Cephalic Comments: Pt's SVE was difficult to performe. VTX not well applied and posterior and difficult to access. Based on Dr. Gracia's previous exam I feel that there has not been any cervical change. Contractions Contraction Frequency(min): 0 Fetus A Monitor: External (US) Presentation: Cephalic Assessment Note: Will assess heart rate after a NSTs performed prior to initiation of oxytocin. Assessment and Plan Assessment and plan (1) Elective induction of labor planned: Status: Acute Assessment and plan: Hospital day 3. 2 nights of cervical ripening and 1 day of oxytocin infusion. The plan is to resume oxytocin infusion. (2) Chronic anticoagulation: Status: Acute Assessment and plan: Patient is has been without enoxaparin since evening of 07/17/2020. SCDs while in bed. Objective Temp Pulse Resp BP Pulse Ox 98.1 F 81 16 128/57 L 98 07/20/20 08:44 07/20/20 08:44 07/20/20 08:44 07/20/20 08:44 07/20/20 08:44 Laboratory Results WBC 11.79 10^3/uL (4.4-10.8) H 07/18/20 19:06 RBC 4.00 10^6/uL (3.93-5.22) 07/18/20 19:06 Hgb 10.7 g/dL (11.2-15.7) L 07/18/20 19:06 Hct 34.0 % (36.0-46.0) L 07/18/20 19:06 MCV 85.0 fL (80-95) 07/18/20 19:06 MCH 26.8 pg (27.0-33.0) L 07/18/20 19:06 MCHC 31.5 % (32.0-36.0) L 07/18/20 19:06 RDW 13.7 % (11.7-14.6) 07/18/20 19:06 Plt Count 231 10^3/uL (130-400) 07/18/20 19:06 MPV 11.2 fL (8.0-11.0) H 07/18/20 19:06 PT 10.5 sec (9.3-11.0) 07/18/20 19:06 INR 1.0 (0.9-1.1) 07/18/20 19:06 SARS-CoV-2 (PCR) Negative (Negative) 07/18/20 18:30 Nasopharyn COVID-19 PCR Not Applicable 07/18/20 18:30 Ref Test Perform Site [place] [facility] lab 07/18/20 18:30 Patient ABO/Rh A Positive 07/18/20 19:06 Antibody Screen Negative 07/18/20 19:06 Subjective Patient Reports: No new Complaints Interval history since last seen: Patient was admitted on the evening of 07/18/2000 for cervical ripening. She received oral misoprostol overnight and had oxytocin infusion that was titrated to a maximum of 20 milliunits/min on hospital day 2. There is no evidence of cervical change or descent of the vertex with the oxytocin infusion and cervical ripening was again performed overnight. Patient received 2 doses of This morning she is sitting up at the bedside on a exercise ball eating a regular diet. States no contractions at the present time. Interventions Induction Indication: Other (Chronic anticoagulation) , Type of Induction: Cervical Ripening , Results Hemoglobin/Hematocrit: Hgb 10.7 g/dL (11.2-15.7) L 07/18/20 19:06 Hct 34.0 % (36.0-46.0) L 07/18/20 19:06 Abnormal Lab Findings: Abnormal Labs 07/18/20 19:06 WBC 11.79 H Hgb 10.7 L Hct 34.0 L MCH 26.8 L MCHC 31.5 L MPV 11.2 H Procedure Procedures: Cervical Ripening Cervical Ripening: Misoprostol
--- NOTE | 2020-07-20 12:52 | W.PM.OBNL1 ---
Date of service: 07/20/20 Time of Service: 12:52 Informed Consent Informed Consent: Induction of Labor and Risk,Benefits,Alternatives Discussed Assessment and Plan Assessment and plan (1) Chronic anticoagulation: Status: Acute (2) Elective induction of labor planned: Status: Acute Objective Temp Pulse Resp BP Pulse Ox 97.9 F 74 18 116/65 97 07/20/20 11:49 07/20/20 11:49 07/20/20 11:49 07/20/20 11:49 07/20/20 11:49 Laboratory Results WBC 11.79 10^3/uL (4.4-10.8) H 07/18/20 19:06 RBC 4.00 10^6/uL (3.93-5.22) 07/18/20 19:06 Hgb 10.7 g/dL (11.2-15.7) L 07/18/20 19:06 Hct 34.0 % (36.0-46.0) L 07/18/20 19:06 MCV 85.0 fL (80-95) 07/18/20 19:06 MCH 26.8 pg (27.0-33.0) L 07/18/20 19:06 MCHC 31.5 % (32.0-36.0) L 07/18/20 19:06 RDW 13.7 % (11.7-14.6) 07/18/20 19:06 Plt Count 231 10^3/uL (130-400) 07/18/20 19:06 MPV 11.2 fL (8.0-11.0) H 07/18/20 19:06 PT 10.5 sec (9.3-11.0) 07/18/20 19:06 INR 1.0 (0.9-1.1) 07/18/20 19:06 SARS-CoV-2 (PCR) Negative (Negative) 07/18/20 18:30 Nasopharyn COVID-19 PCR Not Applicable 07/18/20 18:30 Ref Test Perform Site [place] [facility] lab 07/18/20 18:30 Patient ABO/Rh A Positive 07/18/20 19:06 Antibody Screen Negative 07/18/20 19:06 Vital Signs Reviewed: Yes Objective Narrative Objective Narrative: Sitting in bed semi-Fowlers position looking at her cell phone. Not breathing through contractions Subjective Patient Reports: New Complaints Interval history since last seen: Patient is currently receiving 10 mu/min of oxytocin per protocol and feeling contractions little more strongly. The nurse weigher bulker visited the patient and discussed possibility of an epidural. Patient declines epidural for labor analgesia. Interventions Induction Indication: Other (Chronic anticoagulation) , Type of Induction: Cervical Ripening (Misoprostol cervical ripening followed by oxytocin infusion) , Results Hemoglobin/Hematocrit: Hgb 10.7 g/dL (11.2-15.7) L 07/18/20 19:06 Hct 34.0 % (36.0-46.0) L 07/18/20 19:06 Abnormal Lab Findings: Abnormal Labs 07/18/20 19:06 WBC 11.79 H Hgb 10.7 L Hct 34.0 L MCH 26.8 L MCHC 31.5 L MPV 11.2 H Procedure Procedures: Other (Continue current management and increasing oxygen concentration.)
[2020-07-20] MEDS: Calcium Carbonate *TUMS* 500 MG CHEW PO ×2 (14:04→17:12)
[2020-07-20] MEDS: Lactated Ringers 500 ML IV (16:10)
--- NOTE | 2020-07-20 17:22 | PGE_ITS ---
Date of service: 07/20/20 Time of Service: 17:22 Informed Consent Informed Consent: Induction of Labor and Risk,Benefits,Alternatives Discussed Assessment and Plan Assessment and plan (1) Elective induction of labor planned: Status: Acute (2) Chronic anticoagulation: Status: Acute Objective Temp Pulse Resp BP Pulse Ox 98.1 F 60 18 127/67 98 07/20/20 15:17 07/20/20 17:18 07/20/20 15:17 07/20/20 17:09 07/20/20 17:18 Laboratory Results WBC 11.79 10^3/uL (4.4-10.8) H 07/18/20 19:06 RBC 4.00 10^6/uL (3.93-5.22) 07/18/20 19:06 Hgb 10.7 g/dL (11.2-15.7) L 07/18/20 19:06 Hct 34.0 % (36.0-46.0) L 07/18/20 19:06 MCV 85.0 fL (80-95) 07/18/20 19:06 MCH 26.8 pg (27.0-33.0) L 07/18/20 19:06 MCHC 31.5 % (32.0-36.0) L 07/18/20 19:06 RDW 13.7 % (11.7-14.6) 07/18/20 19:06 Plt Count 231 10^3/uL (130-400) 07/18/20 19:06 MPV 11.2 fL (8.0-11.0) H 07/18/20 19:06 PT 10.5 sec (9.3-11.0) 07/18/20 19:06 INR 1.0 (0.9-1.1) 07/18/20 19:06 SARS-CoV-2 (PCR) Negative (Negative) 07/18/20 18:30 Nasopharyn COVID-19 PCR Not Applicable 07/18/20 18:30 [facility] 07/18/20 18:30 Patient ABO/Rh A Positive 07/18/20 19:06 Antibody Screen Negative 07/18/20 19:06 Vital Signs Reviewed: Yes Subjective Interval history since last seen: AROM performed at 1545. Clear fluid. Intensity of contractions increased shortly after AROM. Katherine Platt DISTILLERY SUPERVISOR spoke to the pt regarding analgesia options during labor and decision made to place labor epidural. Interventions Pain Management Interventions: Epidural ./ Induction Indication: Other (Chronic anticoagulation) , Type of Induction: Pitocin , Results Hemoglobin/Hematocrit: Hgb 10.7 g/dL (11.2-15.7) L 07/18/20 19:06 Hct 34.0 % (36.0-46.0) L 07/18/20 19:06 Abnormal Lab Findings: Abnormal Labs 07/18/20 19:06 WBC 11.79 H Hgb 10.7 L Hct 34.0 L MCH 26.8 L MCHC 31.5 L MPV 11.2 H
[2020-07-20] MEDS: FentaNYL/ROPIvacaine 2 mcg/ml and 0.1% 200 ML CADD Cassette EP (18:03)
--- NOTE | 2020-07-20 19:53 | W.PM.OBNL1 ---
Date of service: 07/20/20 Time of Service: 19:53 Informed Consent Informed Consent: Induction of Labor and Risk,Benefits,Alternatives Discussed Assessment and Plan Assessment and plan (1) Variable heart rate decelerations, antepartum: Status: Acute Assessment and plan: pt's cervix is changing and vtx descending. will continue with position changes and anticipate . Objective Temp Pulse Resp BP Pulse Ox 97.9 F 48 L 18 101/57 L 100 07/20/20 18:17 07/20/20 19:25 07/20/20 18:17 07/20/20 19:25 07/20/20 18:18 Laboratory Results WBC 11.79 10^3/uL (4.4-10.8) H 07/18/20 19:06 RBC 4.00 10^6/uL (3.93-5.22) 07/18/20 19:06 Hgb 10.7 g/dL (11.2-15.7) L 07/18/20 19:06 Hct 34.0 % (36.0-46.0) L 07/18/20 19:06 MCV 85.0 fL (80-95) 07/18/20 19:06 MCH 26.8 pg (27.0-33.0) L 07/18/20 19:06 MCHC 31.5 % (32.0-36.0) L 07/18/20 19:06 RDW 13.7 % (11.7-14.6) 07/18/20 19:06 Plt Count 231 10^3/uL (130-400) 07/18/20 19:06 MPV 11.2 fL (8.0-11.0) H 07/18/20 19:06 PT 10.5 sec (9.3-11.0) 07/18/20 19:06 INR 1.0 (0.9-1.1) 07/18/20 19:06 SARS-CoV-2 (PCR) Negative (Negative) 07/18/20 18:30 Nasopharyn COVID-19 PCR Not Applicable 07/18/20 18:30 Ref Test Perform Site [place] [facility] 07/18/20 18:30 Patient ABO/Rh A Positive 07/18/20 19:06 Antibody Screen Negative 07/18/20 19:06 Vital Signs Reviewed: Yes Subjective Interval history since last seen: Pt not feeling contractions. Having shakes. Afebrile Interventions Augmentation (postion changed, oxytocin infusion decreased [id number]/min to 10mu/min) , Pitocin rate (mU/min): 10 Results Hemoglobin/Hematocrit: Hgb 10.7 g/dL (11.2-15.7) L 07/18/20 19:06 Hct 34.0 % (36.0-46.0) L 07/18/20 19:06 Abnormal Lab Findings: Abnormal Labs 07/18/20 19:06 WBC 11.79 H Hgb 10.7 L Hct 34.0 L MCH 26.8 L MCHC 31.5 L MPV 11.2 H Procedure Procedures: Scalp Electrode Placement (loss of FHR with external toco.) , indication for electrode: fhr changes
[2020-07-20] MEDS: Oxytocin/Normal Saline 30 UNIT/500 ML BAG 95 UNITS IV (20:25)
[2020-07-21] MEDS: Ibuprofen 600 MG TAB PO ×3 (01:14→13:29)
[2020-07-21 01:15] VITALS: BP 115/74; PULSE 88; RESP 18; TEMP 37; O2SAT 98
[2020-07-21 05:30] VITALS: BP 111/71; PULSE 77; RESP 18; TEMP 36.5; O2SAT 97
[2020-07-21] MEDS: Acetaminophen 325 MG TAB 650 MG PO ×2 (05:48→13:29)
[2020-07-21 07:20] VITALS: BP 111/71; PULSE 76; RESP 20; TEMP 36.7; O2SAT 98
--- NOTE | 2020-07-21 09:13 | W.PM.OBDISCH ---
Date of service: 07/22/20 Time of Service: 08:31 DS: Diagnosis Discharge Diagnosis (1) History of DVT (deep vein thrombosis): Status: Acute (2) Chronic anticoagulation: Status: Acute (3) Elective induction of labor planned: Status: Acute (4) Vaginal delivery: Status: Acute (5) Recurrent biliary colic: Status: Acute (6) Abdominal pain affecting : Status: Acute Discharge Plan Disposition Patient Disposition: HOME Condition: Good Discharge Details Reason For Visit: AT 39 2/7. HX PE/DVT Admit Date/Time: 07/18/20 18:41 Admit Provider: Eloisa Gracia Attending Provider: Eloisa Gracia Primary Care Provider: Danyell Choi Hospital Course Hospital Course: Pt was admitted evening on 07/18/20 for cervical ripening with PO Misoprostol. On HD 2 she received Oxytocin infusion without appreciable cervical change so received vaginal Misoprostol on the evening HD2. On HD 3 the Oxytocin infusion was restarted and at 20;14 the evening of 07/20/20 she underwent a of a viable female infant named Celeste over an intact perineum. Wt 6lb7oz. Pt was restarted on daily Enoxaparin dose 12hrs after her epidural catheter was removed. She will be discharged to home taking Enoxaparin 80mg day for 4 days and then switch to Warfarin dosing only on day 5. There will be no overlap of Enoxaparin and Warfarin. She will need appointments in lab for Jul 27, 2020 for assessment of INR and PT. Warfarin dosing will be adjusted with goal of INR between 2-3. Pt need f/u at [facility] on 07/27/20 and lab draw prior to the [facility] appointment. 07/21/20 Pt had episode of bilary colic night prior to discharge. No relief with percocet. Symptoms subsided after 2hrs and no futher episodes prior to discharge. Home Meds and New Rx's Prescriptions: No Action prenat.vits,micheal,noi-msxq-mdpun tablet 1 tab PO DAILY RF: 0 warfarin 2.5 mg tablet 2.5 mg PO .COMPLEX Qty: 60 RF: 3 Discharge Instructions Additional Instructions: Give yourself an injection of Enoxaparin 80mg beginning 07/22/20- the day you home. You may have the dose in the hospital prior to discharge or take the dose in the evening when you are home. Give your self a dose of Enoxaprin 80mg on 07/23, 07/24 and on 07/25/20 take 2 tablets of Warfarin 2.5mg for a total dose of 5mg. On 07/26/20 take another 2 tablets of Warfarin 2.5mg for a total dose of 5mg. On 07/27/20 you will have your blood drawn prior to your [facility] visit. Please schedule an appointment in the lab for the test and at the [facility] for your office visit. At the time of your 07/27/20 C we will decide what your Warfarin dose will be for the next 3months. Yup, you are going to need to take this medicine every day for the next [address] Akers has made a referral to general surgery for eval of biliary colic. Stand Alone Forms: BC Instructions, BC Post Vaginal Deliver Activity:: Activity as Tolerated Equipment/Supplies:: Pt has enoxaparin doses Diet:: As Tolerated Discharge Orders Discharge Orders: Discharge Order (Routine); Ordered 07/22/20 Ordered By: Nicolle Akers Discharge Data Discharge Date/Time-TO BE ENTERED AT DEPARTURE: 07/22/20 09:48 OB:DS Summary Summary Episiotomy Description: None Laceration Description: None Laceration Extension: N/A Contraception Discussed Contraception Discussed: Yes (She and her discussing mastectomy versus permanent sterilization.), Gender-Baby A: Female weight: 6 lb 7 oz Status at Discharge Functional status at discharge: independent ambulation Overall status at discharge: patient is back to baseline Mental Status: mental status grossly normal Speech and Movement: speech and movement normal Mood: congruent mood Affect: normal affect Exam Physical Exam Vital signs: Temp Pulse Resp BP Pulse Ox 98.1 F 76 20 111/71 98 07/21/20 07:20 07/21/20 07:20 07/21/20 07:20 07/21/20 07:20 07/21/20 07:20 Constitutional Constitutional: no acute distress HEENT Exam HEENT Exam: Normal Neck Exam Neck Exam: Normal Respiratory Exam Respiratory Exam: Normal Cardiovascular Exam Cardiovascular Exam: Normal Abdominal Exam Comments: Nontender Fundal Exam Fundus: Below Umbilicus Rectal Exam Rectal Exam: Not Done Extremities Exam Extremity Exam: Normal and Normal Capillary Refill Back/Spine/Pelvis Exam Back Exam: Normal Skin Exam Skin Exam: Normal (Multiple tattoos) Neurological Exam Neurological Exam: Normal Psychiatric Exam Psychiatric Exam: Normal COUNTS INCLUDE 234 BEDS AT THE [facility] Medical History (Updated 08/08/20 @ 18:27 by Nicolle Akers MD) Abdominal pain affecting 2019. Episode of biliary colic during her . Refer to Gen Surgery for eval PP. Ankle fracture 2011 BMI 37.0-37.9, adult CAP (community acquired pneumonia) Chronic anticoagulation Contraception 07/2020. partner will have vasectomy. DVT of lower extremity (deep venous thrombosis) 2016. Began OCPs shortly before fractured ankle with prolonged immobility. 2018 thrombophilia eval negative. 2019. Rx with prophylactic anticoagulation during . Elective induction of labor planned Oral misoprostol overnight. Oxytocin infusion on 07/19/2020 Encounter for induction of labor Excessive and frequent menstruation with irregular cycle Onset early adolescence. Rx with OCPs and most recently Depo-Provera last injection 07/2017. Menses now monthly. DANNA (generalized anxiety disorder) Rx with sertraline and ? Ativan. Not effective. Uses MJ to treat anxiety. Is open to counseling. Herpes zoster without complication Intractable cyclical vomiting with nausea Morbid obesity Recurrent biliary colic during her , will refer for Gen surgery eval PP. Sciatica Sciatica, right side Supervision of high risk in second trimester Family History Father Heart disease Mother Depression Maternal Grandfather Heart disease Maternal Grandmother Stroke 70-80s Sister Depression Social History (Updated 07/21/20 @ 13:08 by Nicolle Akers MD) Smoking/Tobacco Use Status: Never Smoking risk assessment performed?: Yes Alcohol Intake: former Details: Patient denies having an issue with alcohol Drug use: Never Substance use type: former substance user Details: Marijuana use several times a week since 15yo for control of anxiety Household members: other Details: Tammy Villalobos D-Bowie Housing: apartment Number of Children: 2 Education Level: 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 Date GA/Weeks # Outcome Route Wgt Sex Labor Lgth Anesthesia Location Prov Complic 06/13/19 39 No Successful vaginal 8 lb 2 oz Male 42 hour induction regional AOC 07/20/20 38 No Successful vaginal 6 lb 7 oz Female Nicolle O'Juan Delivery Date: 06/13/19 Induction of labor at term secondary to anticoagulation during this . . Intact perineum. Dante Dominguez. DVT and PE 2-3 weeks post post , Treated with Marce Demarco Delivery Date: 07/20/20 No notes to display DS: Data Vitals/I&O Vitals and I&O: Vital Signs Temperature 98.1 F 07/21/20 07:20 Temperature Source Axillary 07/20/20 23:58 Pulse 76 07/21/20 07:20 Pulse Rhythm Regular 07/21/20 07:21 Respiratory Rate 20 07/21/20 07:20 Blood Pressure 111/71 07/21/20 07:20 Blood Pressure Mean 84 07/21/20 07:20 Pulse Oximetry 98 07/21/20 07:20 Oxygen Delivery Method Room Air 07/18/20 19:24 Oxygen Flow Rate 0 07/18/20 19:24 Pain Level 3 07/21/20 07:52 Comment 07/20/20 23:15 Intake & Output 07/20/20 07/20/20 07/21/20 11:59 23:59 11:59 Intake Total 425.567 / 4543.801 4118.234 / 4543.801 500 / 500 Output Total 1850 / 3400 1550 / 3400 1300 / 1300 Balance -1424.433 / 3206.802 1020.234 / 1143.801 -800 / -800 Intake: IV 25.567 / 2193.801 2168.234 / 2193.801 500 / 500 Oral 400 / 900 500 / 900 Other 1450 / 1450 Output: Urine 1850 / 3400 1550 / 3400 1300 / 1300 Other: Urine Color Yellow Yellow
--- NOTE | 2020-07-21 09:15 | OBVDS_ITS ---
Date of service: 07/21/20 Time of Service: 09:15 OB Labor/ Delivery Information Baby A Delivery Delivery Method: Spontaneaous Presentation: Cephalic Cephalic Position: Vertex Vertex Position: Right Occipital Transverse Breech Position: N/A Cord Description-Baby A: 3 Vessels Amniotic Fluid: Clear Estimated Blood Loss: 100 Delivery Outcome: Liveborn Complications: none Transferred: Remains with Mother Providers Doctor: Nicolle Akers Special Order Jeweler: Zack Parnell Nurse: Teresa Park Nurse: Tonie Snyder Labor/Delivery Information Number of Babies in Womb: 1 Steroids Given: None Reason Steroids Not Administered: N/A Group Beta Strep: N/A Antibiotics Administered: No Rubella Status: Immune Blood Type: A+ Varicella Immunity: Immune Medication in Delivery: oxytocin Born En Route: No Maternal Complications: None Shoulder Dystocia: No Stages of Labor Onset of Labor Date: 07/20/20 Onset of Labor Time: 09:20 Complete Dilatation Date: 07/20/20 Complete Dilatation Time: 20:06 Labor - Stage 1 Duration: 0 minutes ROM Baby A: 07/20/20 ROM Baby A: 15:43 Infant Delivery Date-Baby A: 07/20/20 Delivery Time-Baby A: 20:14 Labor Stage 2 Duration: 8 minutes Placenta Delivery Date-Baby A: 07/20/20 Placenta Delivery Time-Baby A: 20:23 Labor-Stage 3 Duration: 9 minutes Total Length of Labor-Baby A: 10 hours and 54 minutes Placenta Cultured: No Placenta Status: Delivered Baby A Infant Gender: Female Gestational Status: Term (39-41.6 wks) Gestational Age in Weeks/Days: 38 Weeks and 4 Days weight: 6 lb 7 oz Length-Baby A: 19.29 in Head Circumference-Baby A: 13.5 in Score-1 Minute Interval(Baby A) Heart Rate-1 minute: 100 BPM or Greater Respiratory Effort- 1 minute: Slow Respiration/Weak Cry Muscle Tone-1 minute: Active Movement Reflex Response-1 minute: Prompt Response Color-1 minute: Bluish Hands or Feet Total Score-1 minute: 8 Score-5 Minute Interval(Baby A) Heart Rate- 5 minute: 100 BPM or Greater Respiratory Effort-5 minute: Spontaneous/Strong Cry Muscle Tone-5 minute: Active Movement Reflex Response-5 minute: Prompt Response Color-5 minute: Bluish Hands or Feet Total Score- 5 minute: 9 Procedure Procedures: Cervical Ripening Cervical Ripening: Misoprostol/ Scalp Electrode Placement , indication for electrode: variable decels of heart rate when transitioning from late stage 1 to completion of stage 2. Interventions Pain Management Interventions: Epidural Epidural Placed by:: Katherine Platt ./ Induction Indication: Other (chronic anticoagulation) , Type of Induction: Cervical Ripening , Induction Note: Pt received oral Misoprostil on HD1, Oxytocin titrated dose on HD2 and vaginal Misoprostil on evening of HD #2. Oxytocin infusion titrated to max dose of 22mu/min during HD 2 and AROM successfully performed in afternoon HD2 with w/o complications that evening . Shoulder Dystocia Delivery Times Head to Body Delivery Interval(minutes): less than one minute. No dystocia Verify No Fundal Pressure Applied Fundal Pressure: No Pressure Applied
[2020-07-21] MEDS: Enoxaparin 40 MG/0.4 ML SYR SC ×2 (09:49→21:59)
[2020-07-21] MEDS: Calcium Carbonate *TUMS* 500 MG CHEW PO ×2 (11:20→16:48)
--- NOTE | 2020-07-21 13:08 | W.PM.OBPNV1 ---
Date of service: 07/21/20 Time of Service: 13:08 Assessment and Plan Assessment and plan (1) Vaginal delivery: Status: Acute Assessment and plan: Breast-feeding well. Patient will be discharged tomorrow and [facility]. In the interim she will can resume enoxaparin 80 mg daily and switch over to 5 mg of warfarin beginning 07/25/2020. (2) Chronic anticoagulation: Status: Acute Assessment and plan: Patient is aware of the schedule of enoxaparin dosing and the change to warfarin 5 mg daily beginning 07/25/2020. Lab order has been submitted for a PT/INR on 07/27/2020 prior to a office visit. Subjective Subjective Interval history: Patient received her initial dose of 40 mg of Lovenox proximate 12 hours after her epidural catheter was removed Patient comments: No complaints, Pain well controlled and Tolerating diet Patient's Mood: Good baby status: Doing well, Nursing well and Rooming in feeding status: Exclusively breast feeding Exam Physical Exam Vital signs: Temp Pulse Resp BP Pulse Ox 98.1 F 76 20 111/71 98 07/21/20 07:20 07/21/20 07:20 07/21/20 07:20 07/21/20 07:20 07/21/20 07:20 Constitutional Constitutional: no acute distress and obese HEENT Exam HEENT Exam: Not Done Respiratory Exam Respiratory Exam: Normal Cardiovascular Exam Cardiovascular Exam: Normal Fundal Exam Fundus: Below Umbilicus Comment: Nontender Rectal Exam Rectal Exam: Not Done Extremities Exam Extremity Exam: Normal; negative Calf Tenderness Back/Spine/Pelvis Exam Back Exam: Normal Skin Exam Skin Exam: Normal Neurological Exam Neurological Exam: Not Done Psychiatric Exam Psychiatric Exam: Normal Results Hemoglobin/Hematocrit: Hgb 10.7 g/dL (11.2-15.7) L 07/18/20 19:06 Hct 34.0 % (36.0-46.0) L 07/18/20 19:06 Abnormal Lab Findings: Abnormal Labs 07/18/20 19:06 WBC 11.79 H Hgb 10.7 L Hct 34.0 L MCH 26.8 L MCHC 31.5 L MPV 11.2 H
[2020-07-21 15:00] VITALS: BP 122/82; PULSE 74; RESP 19; TEMP 36.7; O2SAT 98
[2020-07-21 19:30] VITALS: BP 119/83; PULSE 75; RESP 18; O2SAT 97
[2020-07-21] MEDS: oxyCODONE 5 mg/Acetaminophen 325 mg TAB 1 TAB (21:58)
[2020-07-21] MEDS: Docusate Sodium 100 MG CAP PO (22:01)
[2020-07-22] VITALS: BP 106/64; PULSE 58; RESP 16; TEMP 36.6; O2SAT 98
[2020-07-22] MEDS: Ibuprofen 600 MG TAB PO (03:27)
[2020-07-22] MEDS: Enoxaparin 80 MG/0.8 ML SYR SC (08:37)
[2020-07-22 09:09] VITALS: BP 121/84; PULSE 58; RESP 16; TEMP 36.7; O2SAT 98
== END 2020-07-22 09:48 | disposition home or self-care (01) | DRG 806 ==
PROVIDERS: Admitting Provider Obstetrics & Gynecology; PCP Nurse Practitioner; Visit Provider Obstetrics & Gynecology
DX: O99.214 Obesity complicating childbirth (principal); O98.52 Other viral diseases complicating childbirth; Z37.0 Single live birth; O99.354 Diseases of the nervous system complicating childbirth; O99.344 Other mental disorders complicating childbirth; F41.9 Anxiety disorder, unspecified; E66.01 Morbid (severe) obesity due to excess calories; B02.9 Zoster without complications; Z3A.39 39 weeks gestation of pregnancy; M54.31 Sciatica, right side; Z86.718 Personal history of other venous thrombosis and embolism; Z79.01 Long term (current) use of anticoagulants
CPT/HCPCS: 85027; 86850; 86900; 86901; J1650; U0003; 59200; 85610; J3490

== ENCOUNTER 2020-07-27 03:46 | Outpatient (CLI) | payer OTHER, SELFPAY ==
[2020-07-27 12:35] LABS: INR 1.6 (0.9-1.1); Prothrombin Time 15.8 sec (9.3-11.0)
== END 2020-07-27 03:47 | disposition home or self-care (01) ==
LOC: LBO 03:46
PROVIDERS: PCP Nurse Practitioner; Visit Provider Obstetrics & Gynecology Gynecology
DX: Z86.718 Personal history of other venous thrombosis and embolism (principal); Z79.01 Long term (current) use of anticoagulants
CPT/HCPCS: 36415; 85610

== ENCOUNTER 2020-08-08 10:27 | Outpatient (CLI) | payer OTHER, SELFPAY ==
[2020-08-08 14:50] LABS: Prothrombin Time > 83.4 sec (9.3-11.0)
[2020-08-08 14:51] LABS: INR > 8.8 (0.9-1.1)
== END 2020-08-08 10:28 | disposition home or self-care (01) ==
LOC: LBO 10:28
PROVIDERS: PCP Nurse Practitioner; Visit Provider Obstetrics & Gynecology Gynecology
DX: Z86.718 Personal history of other venous thrombosis and embolism (principal); Z79.01 Long term (current) use of anticoagulants
CPT/HCPCS: 36415; 85610

== ENCOUNTER 2021-04-27 13:14 | Outpatient (REF) | payer MEDICAID, SELFPAY ==
[2021-04-29 09:28] LABS: COVID-19 RT-PCR UVMMC Result Negative (Negative)
== END 2021-04-27 13:15 | disposition home or self-care (01) ==
LOC: LBN 13:14
PROVIDERS: PCP Nurse Practitioner; Visit Provider Nurse Practitioner Family
DX: Z20.822 Contact with and (suspected) exposure to COVID-19 (principal); J02.9 Acute pharyngitis, unspecified
CPT/HCPCS: U0003; 87070

== ENCOUNTER 2021-11-27 12:31 | Outpatient (REF) | payer OTHER, SELFPAY ==
--- NOTE | 2021-11-27 11:00 | PAPFT_PTH ---
PATIENT: Susanna aCstro LOC: [facility] U#:[id number] AGE/SX: 26/F ROOM: RE11/27/[address]: Nicolle Akers : 1995 BED: DIS: 11/27/2021 SPEC #: [id number] RECD: 11/27/21 12:51 STATUS: ELIE RELidia #: [id number] BROWN: 11/27/21 11:[address]: Nicolle Akers DEPT: [facility] Cytology RECD BY: Tracie Campos ENTERED: 11/27/21 12:52 SP TYPE: PAPFT OT DR: Danyell Choi APRN Tissues: 1 - CX/ENDOCX FOR PAP SMEARS Procedures: PAP THIN PREP/[facility] Screening Comments: [id number]
== END 2021-11-27 12:32 | disposition home or self-care (01) ==
LOC: LBN 12:31
PROVIDERS: PCP Nurse Practitioner; Visit Provider Obstetrics & Gynecology Gynecology
DX: Z12.4 Encounter for screening for malignant neoplasm of cervix (principal)
CPT/HCPCS: 88142

== ENCOUNTER 2022-07-04 08:20 | Outpatient (CLI) | payer OTHER, SELFPAY ==
--- NOTE | 2022-07-04 08:15 | RT.EKG_ITS ---
APPROVED REPORT Exam: Resting ECG Reason for Exam: on [facility] Patient Location: O HR:77 bpm ECG Measurements Heart Rate 77 AXIS ME 151 P 23 QRSd 99 QRS 36 QT 374 T 45 QTc 424 Conclusion Sinus arrhythmia...V-rate 58- 87, variation>10% Normal Electrocardiogram
== END 2022-07-04 08:21 | disposition home or self-care (01) ==
LOC: DI.KIM 08:21
PROVIDERS: PCP Nurse Practitioner; Visit Provider Nurse Practitioner
DX: Z51.81 Encounter for therapeutic drug level monitoring (principal)
CPT/HCPCS: 93010

== ENCOUNTER 2022-07-30 16:28 | Outpatient (REF) | payer OTHER, SELFPAY | END 2022-07-30 16:29 | disposition home or self-care (01) | LOC: LBN 16:28 | PROVIDERS: PCP Nurse Practitioner; Visit Provider Obstetrics & Gynecology Gynecology | DX: R30.0 Dysuria (principal) | CPT/HCPCS: 87077; 87086; 87186 ==

== ENCOUNTER 2024-03-24 11:17 | Outpatient (CLI) | payer OTHER, SELFPAY ==
--- NOTE | 2024-03-24 08:45 | DI.RAD_ITS ---
Exam(s) XR SHOULDER RT COMPLETE 2+V EXAM: XR SHOULDER RT COMPLETE 2+V CLINICAL HISTORY: RIGHT SHOULDER PAIN. TECHNIQUE: 2D digital imaging was performed of the right shoulder. Two images were obtained. Axill dhiraj and Grashey views were obtained. COMPARISON: No exams were available for comparison FINDINGS: BONES: No acute fracture is present. No bony destructive lesion is seen. JOINTS: No dislocation present. SOFT TISSUE: Normal. IMPRESSION: Unremarkable radiographs of the right shoulder. DATA REPOSITORY: RADIATION DOSE DELIVERED:
== END 2024-03-24 11:18 | disposition home or self-care (01) ==
LOC: DIORS 11:17
PROVIDERS: PCP Nurse Practitioner; Visit Provider Student in an Organized Health Care Education/Training Program
DX: M25.511 Pain in right shoulder (principal)
CPT/HCPCS: 73030

== ENCOUNTER 2024-04-14 01:04 | Outpatient (CLI) | payer OTHER, SELFPAY ==
--- NOTE | 2024-04-14 06:45 | DI.MRI_ITS ---
Exam(s) MR UPPER JOINT RT WO EXAM: MR UPPER JOINT RT WO CLINICAL HISTORY: R SHOULDER PAIN,TENDINOPATHY RT BICEPS TENDON,TEAR RT GLENOID LABRUM,SLAP TECHNIQUE: Multiplanar multisequence MRI of the shoulder was performed. COMPARISON: CR XR SHOULDER RT COMPLETE 2+V from 03/24/2024 FINDINGS: MARROW:There is no evidence of fracture, Hill-Sachs deformity, nor ominous osseous lesions. GLENOHUMERAL JOINT: No joint effusion nor obvious loose intra-articular bodies. No chondral defects. No osteophytes. No degenerative subarticular cysts. ROTATOR CUFF MECHANISM: AC JOINT/ACROMIUM: There are minimal degenerative changes in the AC joint. There is some intraosseou s edema on the clavicular side of the joint but no osteophytes nor degenerative subarticular cysts no ila.. There is no evidence of os acromiale. There is no fluid in the subacromial space Supraspinatus: Intact. No evidence of tear nor muscle atrophy. Infraspinatus: Intact. No evidence of tear nor muscle atrophy. Teres Minor: Intact. No evidence of tear nor muscle atrophy. Subscapularis/anterior cuff: Intact. No abnormal signal at the level of the multipennate insertional fibers. No significant tear nor atrophy. There is no abnormal intraosseous signal in the lesser tub erosity BICEPS TENDON: Exhibits normal position within the intertubercular groove. No evidence of tear. There is a minimal amount of fluid within the tendon sheath. LABRUM: There is no abnormal signal in the superior labrum posterior to the biceps insertion site to suggest presence of a SLAP-type tear. Posterior labrum appears intact is no evidence of anterior lab ral tear. No evidence of paralabral cyst. QUADRILATERAL SPACE: No evidence of mass in the region of the axillary nerve and dorsal circumflex hu meral vessels. Visualized triceps muscle at this level appears unremarkable. IMPRESSION: 1. No evidence of obvious labral tear, as per request. Also no evidence of paralabral cyst. 2. No evidence of biceps tendon tear. There is a small amount of fluid in the biceps tendon sheath w ithin the intertubercular groove. 3. No evidence of significant rotator cuff muscle group pathology 4. No significant glenohumeral joint effusion nor loose intra-articular bodies. No significant a de generative changes in the glenohumeral joint. DATA REPOSITORY:
== END 2024-04-14 01:24 ==
LOC: DI 01:05
PROVIDERS: PCP Nurse Practitioner; Visit Provider Student in an Organized Health Care Education/Training Program
DX: S43.431A Superior glenoid labrum lesion of right shoulder, initial encounter (principal); X58.XXXA Exposure to other specified factors, initial encounter
CPT/HCPCS: 73221

== ENCOUNTER 2024-04-21 15:19 | Outpatient (CLI) | payer OTHER, SELFPAY ==
--- NOTE | 2024-04-21 10:45 | DI.RAD_ITS ---
Exam(s) XR SHOULDER RT 1V EXAM: XR SHOULDER RT 1V CLINICAL HISTORY: RIGHT SHOULDER PAIN. TECHNIQUE: 2D digital imaging was performed. Five views. COMPARISON: CR XR SHOULDER RT COMPLETE 2+V from 03/24/2024 MR MR UPPER JOINT RT WO from 04/14/2024 FINDINGS: BONES: No acute fracture is present. No bony destructive lesion is seen. JOINTS: No dislocation present. There is no widening of AC joint which may be postsurgical. Clinica l correlation recommended SOFT TISSUE: Normal. IMPRESSION: Pointing of the AC joint which may be postsurgical. DATA REPOSITORY: RADIATION DOSE DELIVERED:
== END 2024-04-21 15:20 | disposition home or self-care (01) ==
LOC: DIORS 15:20
PROVIDERS: PCP Nurse Practitioner; Visit Provider Student in an Organized Health Care Education/Training Program
DX: S43.431D Superior glenoid labrum lesion of right shoulder, subsequent encounter (principal); X58.XXXD Exposure to other specified factors, subsequent encounter
CPT/HCPCS: 73020

== ENCOUNTER 2025-04-12 23:26 | Emergency (ER) | payer OTHER, SELFPAY ==
--- NOTE | 2025-04-12 23:28 | W.ED.GENAD ---
Discharge Plan Disposition Patient Disposition: Home Condition: Good Discharge Details Clinical Impression: UTI (urinary tract infection) Primary Care Provider: Nidhi Barroso ED Provider: Jae Garcias [place] Meds and New Rx's Prescriptions: New nitrofurantoin monohyd/m-cryst [Macrobid] 100 mg Capsule 100 mg PO BID Qty: 9 0RF Continued Kyleena 17.5 mcg/24 hrs (5 yrs) 19.5 mg intrauterine device 1 device intrauterine ONCE Qty: 1 0RF Rx Instructions: as a single dose lisdexamfetamine 40 mg capsule 40 mg PO DAILY MDD 40mg Qty: 28 0RF lisdexamfetamine [Vyvanse] 40 mg capsule 40 mg PO DAILY MDD 40mg Qty: 28 0RF lisdexamfetamine [Vyvanse] 40 mg capsule 40 mg PO DAILY MDD 40mg Qty: 28 0RF tirzepatide (weight loss) 15 mg/0.5 mL pen injector 15 mg subcut QWEEK Qty: 2 5RF Rx Instructions: Corrected Discharge Instructions Instructions: Urinary Tract Infection, Adult ED Additional Instructions: You were seen in the ED for urinary symptoms and found to have a positive urinalysis. You may continue use of hydrating to control symptoms. You have been started on the antibiotic Macrobid which you will take twice a day for 5 days, first dose given here. Be sure to stay hydrated. Follow-up with primary care next week if not improving. Return to ED for any flank pain, persistent vomiting, worsening abdominal pain, fevers, or other concerns. Referrals: Nidhi Barroso APRN [Primary Care Provider, Family Practice] [facility] General Mode of arrival: ambulatory. Date/Time Provider Initiated Documentation: 04/12/25 23:27. Limitations to Documentation: no limitations. Information obtained by: patient and RN notes reviewed. HPI Narrative: Patient presents to the ED complaint of urgency, dysuria, frequency for the last 2 days. Has been taking Pyridium with relief of symptoms but symptoms continue. Has had UTIs previously with similar presentation. Denies any fever, vomiting, abdominal pain, back pain. Has no known drug allergies and has never had resistant organisms. Related Data Home Medications ?Medication ?Instructions ?Recorded ?Confirmed levonorgestrel 17.5 mcg/24 hr (up 1 device intrauterine ONCE #1 ea 07/30/22 04/12/25 to 5 yrs) 19.5mg intrauterine device (Kyleena) lisdexamfetamine 40 mg capsule 40 mg PO DAILY #28 caps 04/06/25 04/12/25 lisdexamfetamine 40 mg capsule 40 mg PO DAILY #28 caps 04/06/25 04/12/25 (Vyvanse) lisdexamfetamine 40 mg capsule 40 mg PO DAILY #28 caps 04/06/25 04/12/25 (Vyvanse) tirzepatide (weight loss) 15 15 mg (0.5 mL) subcut QWEEK #2 mL 04/06/25 04/12/25 mg/0.5 mL subcutaneous pen injector nitrofurantoin 100 mg PO BID #9 caps 04/12/25 monohydrate/macrocrystals 100 mg capsule (Macrobid) Previous Rx's ?Medication ?Instructions ?Recorded levonorgestrel 17.5 mcg/24 hr (up 1 device intrauterine ONCE #1 ea 07/30/22 to 5 yrs) 19.5mg intrauterine device (Kyleena) lisdexamfetamine 40 mg capsule 40 mg PO DAILY #28 caps 04/06/25 lisdexamfetamine 40 mg capsule 40 mg PO DAILY #28 caps 04/06/25 (Vyvanse) lisdexamfetamine 40 mg capsule 40 mg PO DAILY #28 caps 04/06/25 (Vyvanse) tirzepatide (weight loss) 15 15 mg (0.5 mL) subcut QWEEK #2 mL 04/06/25 mg/0.5 mL subcutaneous pen injector nitrofurantoin 100 mg PO BID #9 caps 04/12/25 monohydrate/macrocrystals 100 mg capsule (Macrobid) Allergies Allergy/AdvReac Type Severity Reaction Status Date / Time No Known Allergies Allergy Verified 04/06/25 14:35 General CARIDAD: 2 Exam Narrative Exam Narrative: Const: WDWN female in NAD. VS per triage. HEENT: NC/AT. Normal facial exam. Neck: Supple. Trachea midline. Lungs: Normal respiratory effort. Back: No CVAT. Neuro: A+O x 3. Normal speech, mentation, gait. Cranial nerves II - XII grossly intact. No gross motor or sensory deficit. Medical Decision Making Patient presenting with urinary symptoms. She has no systemic signs and denies fever, back pain, vomiting, abdominal pain. Exam is unremarkable. Urine test is negative. Urinalysis is positive and consistent with UTI. Patient was started on Macrobid, first dose given here. May continue use of Pyridium as needed for symptoms. Follow-up with primary care next week if not improving. Return precautions provided. Lab Data Lab results reviewed: Yes I reviewed the patient's lab results. 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 Kyleena Dysuria (Acute) General counseling and advice on female contraception (Acute) Insulin resistance (Acute ~04/2022) 05/02/22 Weight Wellness Elevated ALT measurement (Acute ~04/2022) 05/02/22 Weight Wellness Class 2 severe obesity with serious comorbidity in adult (Acute) 05/02/22 Weight Wellness ADD (attention deficit disorder) (Acute) Binge eating disorder (Acute) Obesity (Chronic) Depression, unspecified (Chronic ~03/16/21) Concentration deficit (Acute) Sciatica, right side (Acute) High BMI (Acute) BMI 42 DANNA (generalized anxiety disorder) (Chronic) Rx with sertraline and ? Ativan. Not effective. Uses MJ to treat anxiety. Is open to counseling. Medical History Binge eating History of pulmonary embolism Encounter for induction of labor BMI 37.0-37.9, adult Excessive and frequent menstruation with irregular cycle Onset early adolescence. Rx with OCPs and most recently Depo-Provera last injection 07/2017. Menses now monthly. Herpes zoster without complication Morbid obesity Intractable cyclical vomiting with nausea Sciatica CAP (community acquired pneumonia) Ankle fracture 2011 DVT of lower extremity (deep venous thrombosis) 2016. Began OCPs shortly before fractured ankle with prolonged immobility. 2018 thrombophilia eval negative. 2019. Rx with prophylactic anticoagulation during . Surgical History S/P cholecystectomy (08/30/20) [facility]yah [facility]. Family History Father Heart disease Mother Depression Anxiety Maternal Grandfather Heart disease Maternal Grandmother Stroke 70-80s Sister Depression Anxiety Social History Smoking/Tobacco Use Status: Current-Occasional Tobacco: How many years used: 2 Quit status: has quit before Smoking risk assessment performed?: Yes Alcohol Intake: former Details: Patient denies having an issue with alcohol Drug use: Never Substance use type: marijuana Details: Marijuana use several times a week since 15yo for control of anxiety Adopted: No Caregiver/Support person: No Foster care: No Household members: significant other, children and other Details: Tammy Villalobos [place] Housing: house Number of Children: 2 Communication Needs: None Education Level: college 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 [employer] Pets and animals: Yes Pets and animals: cat(s) Sexually active: Yes Do you think of yourself as: Pansexual Current gender identity: female Other: Past relationships have been with male partners What is your relationship status?: living with partner How often do you talk on the phone with friends or family?: never How often do you get together with friends or relatives?: once per week Do you belong to any clubs or organized social groups?: no Panel score (0-1 are the most socially isolated patients): 1 What type of physical activity do you participate in: other Details: Spinnin Duration: 15-30 minutes/day Frequency: 1-2 times per week Katie/Church: None Special katie needs: No Seatbelt use: always Helmet use: No Drive intox or ride w/intox carrier driver: No Do you feel safe at home: Yes Do you feel safe in your relationship?: Yes Female Reproductive History Menstrual control method: none History History 2 Para 0 Hx # Term Pregnancies 2 Multiple births 0 Hx # Pregnancies 0 Ectopic pregnancies 0 AB induced 0 Hx Number of Living Children 2 AB spontaneous 0 Past Pregnancies Del. Date GA/Weeks # Preg Succ Route Wgt Sex Labor Lgth Anesthesia Location Prov Complic 06/13/19 39 No vaginal 3685.438 g Male 42 hour induction regional AOC 07/20/20 38 No vaginal 2920.001 g Female Nicolle Akers Delivery Date: 06/13/19 Last Updated by: Marce Orellana CNM Induction of labor at term secondary to anticoagulation during this . . Intact perineum. Dante Dominguez. DVT and PE 2-3 weeks post post , Treated with Eliqus
[2025-04-12 23:31] VITALS: BP 133/70; PULSE 74; RESP 16; O2SAT 97
[2025-04-12 23:35] VITALS: BP 133/70; PULSE 74; RESP 16; O2SAT 97
[2025-04-12 23:45] LABS: Glucose Negative (Negative)
[2025-04-12 23:51] LABS: WBC 20-50 HPF (0-5)
[2025-04-12 23:52] LABS: C & S Indicated? Yes
[2025-04-12] MEDS: MacroBID 100 MG CAP PO (23:56)
--- NOTE | 2025-04-15 10:50 | NUR.NOTE ---
Accessed Pt chart to document antibiotics given to Pt for the Specimen Report. Report given to Providers.
== END 2025-04-13 00:09 | disposition home or self-care (01) ==
PROVIDERS: Emergency Provider Emergency Medicine; PCP Nurse Practitioner Family
DX: N39.0 Urinary tract infection, site not specified (principal)
CPT/HCPCS: 99283 ×2; 81025; 87077; 81003; 81015; 87086; 87186